=== PATIENT | male | born 1940 | race Caucasian/White ===

== ENCOUNTER → 2016-07-27 | Outpatient (REF) | payer MEDICARE, BC ==
[~2016-07-27] MED LIST: /AMLO25TA PO; /GLIM4TA PO; /WARF5TA PO; ALBU17IN INH; ALLO100T OR; AMIO20TA PO; AMLO10TA2 PO; AMOX875T2 PO; ASPI1TAB PO; ASPI325T PO; ASPI81TA85 PO; ASPI81TAEC PO; AUGM875T27 PO; BETA5CR EXT; BETA5OI TOP; BYDU1INJ SC; BYDUINJ SC; CARV25TA PO; CEFT500T3 PO; CHLORTHALIDONE PO; CORE25TA PO; DOXY10CA PO; ENAL20TA PO; FEBU40TA PO; FISH1000 PO; FLUT1SPR2; FURO40TA2 PO; GLIM4TAB PO; GLUC500T OR; HYDR25TAB PO; LISI-538 PO; LOPR1TAB6 PO; LORA10TA2 PO; MECL-68 PO; OMEGA FISH OIL PO; OMEP20CA3 PO; PRIL20CA PO; SITAGLIPTIN PO; XARE15TA PO; ZETI10TA PO; ZETI10TA2 PO
[2016-07-27 15:29] LABS: ALBUMIN 3.5 GM/DL (3.2-5.2); ALBUMIN/GLOBULIN RATIO 1.09 (1.00-1.93); BILIRUBIN,TOTAL 0.4 MG/DL (0.2-1.0); CALCIUM LEVEL 8.2 MG/DL (8.8-10.2); CREATININE FOR GFR 1.59 MG/DL (0.70-1.30); GLOMERULAR FILTRATION RATE 45.2 (>42); POTASSIUM SERUM 4.5 MEQ/L (3.5-5.1); TOTAL PROTEIN 6.7 GM/DL (6.4-8.2)
== END ==
LOC: M SFHCLACO 08:14
PROVIDERS: ATTEND Physician Assistant
DX: E11.9 Type 2 diabetes mellitus without complications (principal)

== ENCOUNTER 2016-09-13 19:16 | Inpatient (IN) | payer MEDICARE, BC ==
[~2016-09-13] VITALS: Ht 177.8 cm; Wt 126.2 kg
[2016-09-13] MEDS ORDERED: IPRATROPIUM 0.5MG/ALBUTEROL 2.5MG INH SOL UD 3ML (DUONEB)(J7620) NEB ONE (21:00)
[2016-09-13 21:57] LABS: ADD MORPHOLOGY? YES; BASO % 0.3 % (0.0-1.0); EOS # 0.1 K/mm3 (0.0-0.50); EOS % 1.4 % (0.0-3.0); LARGE UNSTAINED CELL # 0.2 K/mm3 (0.0-0.4); LARGE UNSTAINED CELL % 1.6 % (0.0-4.0); LYMPH % 8.5 % (24.0-44.0); MEAN CORPUSCULAR HEMOGLOBIN 15.6 pg (27.0-33.0); MEAN CORPUSCULAR HGB CONC 24.4 g/dl (32.0-36.5); MEAN CORPUSCULAR VOLUME 63.9 fl (80.0-96.0); MONO # 0.5 K/mm3 (0.0-0.8); MONO % 4.6 % (0.0-5.0); NEUTROPHILS # 8.3 K/mm3 (1.8-7.7); NEUTROPHILS % 83.6 % (36.0-66.0); PLATELET COUNT, AUTOMATED 219 k/mm3 (150-450); RED CELL DISTRIBUTION WIDTH 20.9 % (11.5-14.5)
[2016-09-13 22:06] LABS: VENOUS BASE EXCESS 5.9 (-2.0-2.0); VENOUS PARTIAL PRESSURE CO2 63.4 mmHg (38.0-50.0); VENOUS PARTIAL PRESSURE O2 56.4 mmHg (30.0-50.0); VENOUS STANDARD HCO3 29.7 MEQ/L; VENOUS TOTAL CO2 34.5 MEQ/L (24.0-28.0)
[2016-09-13 22:20] LABS: ANISOCYTOSIS 2+; CALCIUM LEVEL 8.2 MG/DL (8.8-10.2); CREATININE FOR GFR 1.53 MG/DL (0.70-1.30); GLOMERULAR FILTRATION RATE 47.2 (>42); HYPOCHROMASIA 3+; MICROCYTOSIS 3+; POTASSIUM SERUM 4.9 MEQ/L (3.5-5.1)
[2016-09-13 22:21] LABS: POLYCHROMASIA 1+
[2016-09-13 22:54] LABS: PERCENT SATURATION 4.4 % (19.7-37.4)
[2016-09-13] MEDS ORDERED: METO50TA2 PO (23:02)
[2016-09-13] MEDS ORDERED: AMIO20TA PO (23:02)
[2016-09-13] MEDS ORDERED: FURO40TA2 PO (23:03)
[2016-09-13] MEDS ORDERED: NS 1,000 ML IV SCH (23:48)
[2016-09-14] MEDS ORDERED: BETAMETHASONE DIP 0.05% OINT 15 GM TOP PRN
[2016-09-14] MEDS ORDERED: ONDANSETRON 4MG/2ML VIAL (J2405) IV PRN
[2016-09-14] MEDS ORDERED: BISACODYL 5 MG TAB PO PRN
[2016-09-14] MEDS ORDERED: ACETAMINOPHEN TAB 650MG DOSE (2X325MG) PO PRN
[2016-09-14] MEDS ORDERED: FLUTICASONE PROP 0.05% NASAL SPRAY 16 GM (FLONASE) PRN
[2016-09-14] MEDS ORDERED: ALBUTEROL 90 MCG/ACT 8GM HFA INHALER INH PRN
[2016-09-14] MEDS ORDERED: ALBUTEROL SULFATE 2.5 MG/0.5 ML INH NEB SOLN NEB PRN (00:15)
[2016-09-14] MEDS ORDERED: FUROSEMIDE 40 MG/4 ML VIAL (J1940) IV SCH (00:15)
[2016-09-14 01:00] VITALS: BP 176/80
[2016-09-14 04:50] VITALS: BP 168/77
[2016-09-14 05:24] LABS: MEAN CORPUSCULAR HEMOGLOBIN 18.6 pg (27.0-33.0); MEAN CORPUSCULAR HGB CONC 27.1 g/dl (32.0-36.5); MEAN CORPUSCULAR VOLUME 68.5 fl (80.0-96.0); RED CELL DISTRIBUTION WIDTH 21.9 % (11.5-14.5); WHITE BLOOD COUNT 9.3 K/mm3 (4.0-10.0)
[2016-09-14 05:42] LABS: ALBUMIN 3.3 GM/DL (3.2-5.2); ALBUMIN/GLOBULIN RATIO 0.92 (1.00-1.93); CALCIUM LEVEL 8.1 MG/DL (8.8-10.2); CREATININE FOR GFR 1.38 MG/DL (0.70-1.30); GLOMERULAR FILTRATION RATE 53.2 (>42); POTASSIUM SERUM 4.5 MEQ/L (3.5-5.1); TOTAL PROTEIN 6.9 GM/DL (6.4-8.2)
--- NOTE | 2016-09-14 05:59 | ECGEPIP ---
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
--- NOTE | 2016-09-14 07:11 | HPE ---
DATE OF ADMISSION: 09/14/2016 PRIMARY CARE PHYSICIAN: Judith Soler NP ENGRAVER TIRE MOLD: Trent Alfredo MD CODE STATUS: FULL CODE. CHIEF COMPLAINT: Fatigue and dyspnea. HISTORY OF PRESENT ILLNESS: Mr. Donnelly is a 76-year-old male with multiple past medical history who presented to emergency room (ER) due to experiencing shortness of breath that has been increased for the past 2 weeks. Patient expressed that he usually walked alone about the distance of two bedrooms. However, patient expressed that for the past 2 weeks he noticed that he become more out of breath and it has been increasing gradually. Patient denies sick contact. Patient denies fever, chills or night sweats. However, patient has noticed that his stool become darker than usual. Patient was started on Xarelto when patient was in the hospital due to atrial fibrillation. However, according to the patient, patient stopped taking Xarelto several weeks ago, which was stopped by his stamp mounter. At this time, patient is only on aspirin. Patient denies lightheadedness or dizziness. Patient also denies seizure type activities or losing consciousness. Patient also denies chest pain, palpitations or racing heartbeat. Patient also expressed that he is on oxygen 2 liter 24 hours and he feels that he needed more oxygen for the past week. Patient also has a chronic cough with yellowish sputum production. However, patient denies noticing that his cough has increased. ALLERGIES: NO KNOWN DRUG ALLERGY. PAST MEDICAL HISTORY: 1. Congestive heart failure exacerbation. 2. Atrial fibrillation. 3. Acute kidney injury. 4. Hypotension. 5. Hypoxia. 6. History of pleural effusion. 7. Gout. 8. Diabetes mellitus. 9. Gastroesophageal reflux disease (GERD). 10. Hypertension. 11. Morbid obesity with body mass index (BMI) of 41. PAST SURGICAL HISTORY: 1. Normal history of the gallbladder removed. 2. Appendectomy. 3. Knee surgery. HOME MEDICATION: Ventolin Hfa 2 puff inhaler every 4 hours when necessary shortness of breath Amiodarone 400 mg by mouth every PM Aspirin 81 mg by mouth every morning Betamethasone one dose topical twice a day when necessary dry skin Exenatide 2 mg before meals once a week (Tuesday) Zetia 10 mg by mouth every afternoon dinnertime Uloric 40 mg by mouth every afternoon Fish oil 1000 mg by mouth every afternoon Fluticasone propionate 0.05% to a spray and a daily when necessary allergy Furosemide 40 mg by mouth qam Glimepiride 4 mg by mouth twice a day Loratadine 10 mg by mouth every morning Metoprolol titrate 50 mg by mouth twice a day Omeprazole 20 mg by mouth every afternoon SOCIAL HISTORY: Patient lived with his . Patient has two sons who are healthy. Patient has not traveled outside the [place]. Patient has been exposed to asbestos. Patient has smoked about two packs since he was a teenager. He quit smoking in 1997. Patient was smoking for 30 years. Alcohol: Patient expressed that he drinks alcohol occasionally. Patient denies illicit drug use. Patient has no pets. FAMILY HISTORY: Patient has two sisters who due to breast cancer and abdominal cancer. Patient's mother at age 76. Patient's father at age 52. Patient does not know if his parents have any diseases. REVIEW OF SYSTEMS: GENERAL: Patient denies fever, chills, night sweats or any loss or weight gain. HEENT: Patient denies vision or hearing changes. Patient denies problem with chewing food, headache, lightheadedness or dizziness. However, patient expressed that he has been experiencing fatigue. NECK: Patient denies lumps, bumps or decreased range of motion of his neck. ABDOMEN: Patient denies abdominal pain, nausea, vomiting diarrhea, constipation , melena, hematochezia or hemoptysis. LUNG: Patient expressed that he has been experiencing shortness of breath. Patient is on 2 liter oxygen 24 hours and for the past week he feels that he needs more oxygen. Patient also has chronic cough. However, patient denies increasing of his cough. HEART: Patient denies palpitation, skipping heartbeat or chest pain. NEUROLOGIC: Patient denies history of transient ischemic attack (TIA), CVA, or seizure type activity. PHYSICAL EXAMINATION: VITAL SIGNS: Temperature 98.2, pulse 80, respiratory rate 17, blood pressure 146/66, pulse oximetry 84 on 2 liter nasal cannula. GENERAL APPEARANCE: Patient was lying in bed, no acute distress. Patient was awake, alert and oriented to time, place and person. HEENT: Normocephalic, atraumatic. Pupils are equal and reactive to light. Oral mucosa is moist. NECK: Soft, supple. No lymphadenopathy. No thyromegaly. HEART: Irregularly irregular. LUNG: Patient has scattered rhonchi at the base of lung. Good air movement. ABDOMEN: Soft, nontender. Positive bowel sounds in all quadrants. EXTREMITY: Patient has pitting edema in both lower extremities. Patient has decreased strength in both lower extremities, however, has normal sensation in both upper and lower extremities. NEUROLOGICAL: Cranial nerves II-XII intact. No focal deficiencies. RECTAL: Patient has positive guaiac test, however, no active bleeding was noticed. normal sphincter tone. LABORATORY DATA: White blood cells 10, red blood cells 3.74, hemoglobin 5.8, hematocrit 23.9, MCV 63.9, MCH 15.6, MCHC 24.4, RDW 20.9, platelet count 219, neutrophil percentage 83.6, lymphocyte percentage 8.5, monocyte percentage 4.6, eosinophil percentage 1.4, basophil percentage 0.3, leukocyte percentage 1.6. VBG bicarbonate 29.7, VBG pH 7.328, VBG pCO2 63.4, VBG pO2 56.4, VBG HCO3 32.5, VBG total CO2 34.5, VBG oxygen saturation 86, VBG base excess 5.9. Sodium 138, potassium 4.9, chloride 99, carbon dioxide 35, anion gap 4, BUN 31, creatinine 1.53, glomerular filtration rate 47.2, fasting glucose 218, calcium 8.2. Iron 20, TIBC 458, transferrin percentage 4.4, ferritin 4, total creatinine kinase 30, CK-MB 1.2, CK-MB relative index 4, troponin I 0.03, BNP 248. Vitamin B12 pending. Folic pending. Chest x-ray is pending at this time. ASSESSMENT AND PLAN: 1. Dyspnea. This is possibly due to anemia secondary to GI bleeding. other less likely possibilities included but not limited to GERD versus interstitial lung disease. Patient's hemoglobin, it is 5.8 and hematocrit is 23.9. Patient had colonoscopy done about 10 years ago, which was normal. However, patient has not had any procedure since then. Guiaic was positive. At this time, we have started patient on blood transfusion 4 units. However, due to patient's diastolic congestive heart failure and to prevent hypervolemia, we will give IV Lasix after the second transfusion and we will check hemoglobin and hematocrit every 6 hours. Patient is NPO and on Protonix 40 IV twice a day. 2. Atrial fibrillation. Patient was on Xarelto. However, stamp mounter has stopped this medication and started him on aspirin as an outpatient several weeks ago. However, due to gastrointestinal (GI) bleeding, I have held the aspirin. We will continue patient on Lopressor 50 mg by mouth twice a day and amiodarone 400 mg by mouth daily 3. Acute kidney injury. This is possibly secondary to dehydration versus medications. We have held nephrogenic medications and patient receiving blood transfusion. We will recheck the kidney function again. 4. Diabetes mellitus. At home, patient is on glimepiride; however, I have held it and I have started patient on sliding scale. Patient also nothing by mouth at this time. 5. Hypertension. At home, patient is on Lasix 40 mg by mouth every morning. However, I have stopped this medication due to acute kidney injury however he will receive a dose of IV Lasix after second unit of blood transfusion to prevent hypervolemia. 6. Diastolic congestive heart failure. Patient will receive a dose of Lasix IV. Patient is also on Lopressor. 7. Gout. Patient was on Uloric. However, I hold this medication. 8. Gastroesophageal reflux disease. Patient is on IV Protonix. 9. Deep venous thrombosis (DVT) prophylaxis. Patient is on thromboembolism deterrents (TEDs) and sequentials. My preceptor for this patient encounter was Louise Moreno MD. The preceptor was physically present in the building during the encounter and was fully available. As needed, all aspects of the patient interview, examination, medical decision making process, and medical care plan development were reviewed and approved by the preceptor. The preceptor is aware and concurs with the plan as stated in the body of this note and will attest to such by his/her co-signature. PATRIC
[2016-09-14 08:00] VITALS: BP 150/70
[2016-09-14] MEDS: IPRATROPIUM 0.5MG/ALBUTEROL 2.5MG INH SOL UD 3ML (DUONEB)(J7620) NEB SCH ×2 (08:20→15:39)
[2016-09-14] MEDS ORDERED: FUROSEMIDE 40 MG TAB PO SCH (09:00)
[2016-09-14] MEDS ORDERED: LORATADINE 10 MG TAB PO SCH (09:00)
[2016-09-14] MEDS: METOPROLOL TART 50 MG TAB PO SCH ×2 (09:00→21:24)
[2016-09-14] MEDS: PANTOPRAZOLE 40MG INJ (PROTONIX) (C9113) IV SCH ×2 (09:00→21:24)
[2016-09-14] MEDS: FUROSEMIDE 40 MG/4 ML VIAL (J1940) IV SCH (09:01)
[2016-09-14 09:21] LABS: FOLATE 19.7 NG/ML (>5.4)
--- NOTE | 2016-09-14 09:51 | REP ---
TWO VIEW CHEST: Two views of the chest are performed. Moderate right effusion is unchanged since the prior study of 04/05/2016. There is an adjacent atelectasis/infiltrate which is also stable. There appears to be mild stable fibroatelectatic change in the left base. Visualized cardiomediastinal silhouette is unchanged. There are degenerative changes of the spine. IMPRESSION: No change in moderate right effusion and bibasilar parenchymal opacities compared to prior study of 04/05/2016. Signed by Brendan Pace MD 09/14/2016 04:06 P
[2016-09-14 12:00] VITALS: BP 147/70
[2016-09-14 15:58] VITALS: BP 145/76
--- NOTE | 2016-09-14 16:23 | IPNPDOC ---
Subjective Date Seen The patient was seen on 09/14/16. Subjective Chief Complaint/HPI The patient is a 76-year-old male admitted with a reason for visit of Gastrointestinal Bleed. Constitutional: Denies: Chills, Fever, Night Sweats Pulmonary: Denies: Dyspnea, Cough Cardiovascular: Denies: Chest Pain, Palpitations, Orthopnea, Paroxysmal Noc. Dyspnea, Lt Headedness Objective Physical Examination General Exam: Positive: Alert, No Acute Distress Eye Exam: Positive: PERRLA, Conjunctiva & lids normal, EOMI, Negative: Sclera icteric Neck Exam: Positive: Supple Chest Exam: Positive: Clear to auscultation, Normal air movement Heart Exam: Positive: Rate Normal, Regular Rhythm, Normal S1, Normal S2, Negative: Murmurs, Rubs Extremity Exam: Positive: Normal pulses, Negative: Clubbing, Cyanosis, Edema Assessment /Plan Problems (1) Symptomatic anemia Status: Acute Problem Text: * pt was on xarelto that was discontinued august 06 * he noted dark stool in the past when he was still on xarelto but that has resolved since he stopped the medication * when he arrived to ED his hg was 5.8 he was transfused 4 units of prbc, now stable hg * will continue to monitor Hg Q6 hours * FOBT X2 were ordered * last colonoscopy was more than 10 years ago (2) COPD (chronic obstructive pulmonary disease) Status: Chronic Response to Treatment: Stable Problem Text: * pt on 2 L of oxygen all the time at home * good oxygen saturations (3) Chronic respiratory failure with hypoxia Status: Chronic Response to Treatment: Stable (4) Hypertension Status: Chronic (5) Diastolic CHF Status: Chronic Response to Treatment: Stable (6) Hypotension Status: Resolved Plan/VTE VTE Prophylaxis Ordered?: Yes VS, I&O, 24H, [facility] Vital Signs/I&O Vital Signs Date Time Temp Pulse Resp B/P (MAP) Pulse Ox O2 Delivery O2 Flow Rate FiO2 09/14/16 15:58 97.7 76 18 145/76 (99) 94 Nasal Cannula 2.0 I&O- Last 24 Hours up to 6 AM 09/14/16 06:00 Intake Total 970 ml Output Total 875 ml Balance 95 ml Laboratory Data 24H LABS Laboratory Tests 2 09/13/16 21:35: Blood Gas Bicarbonate Standard 29.7, Venous Blood pH 7.328L, Venous Blood Partial Pressure CO2 63.4H, Venous Blood Partial Pressure O2 56.4H, Venous Blood Total Carbon Dioxide 34.5H, Venous Blood HCO3 32.5H, Venous Blood Oxygen Saturation 86.0H, Venous Blood Base Excess 5.9H 09/13/16 21:36: White Blood Count 10.0, Red Blood Count 3.74L, Hemoglobin 5.8*L, Hematocrit 23.9L, Mean Corpuscular Volume 63.9L, Mean Corpuscular Hemoglobin 15.6L, Mean Corpuscular Hemoglobin Concent 24.4L, Red Cell Distribution Width 20.9H, Platelet Count 219, Neutrophils (%) (Auto) 83.6H, Lymphocytes (%) (Auto) 8.5L, Monocytes (%) (Auto) 4.6, Eosinophils (%) (Auto) 1.4, Basophils (%) (Auto) 0.3, Neutrophils # (Auto) 8.3H, Lymphocytes # (Auto) 1.0L, Monocytes # (Auto) 0.5, Eosinophils # (Auto) 0.1, Basophils # (Auto) 0.0, Large Unclassified Cells % 1.6 , Large Unclassified Cells # 0.2, Platelet Estimate NORMAL, Polychromasia 1+, Hypochromasia 3+, Anisocytosis 2+, Microcytosis 3+, Anion Gap 4L, Glomerular Filtration Rate 47.2, Blood Urea Nitrogen 31H, Creatinine 1.53H, Sodium Level 138, Potassium Level 4.9, Chloride Level 99, Carbon Dioxide Level 35H, Calcium Level 8.2L, Total Creatine Kinase 30L, Iron Level 20L, Total Iron Binding Capacity 458H, Transferrin % Saturation 4.4L, Ferritin 4L, Creatine Kinase MB 1.2, Creatine Kinase MB Relative Index 4.00, Troponin I 0.03, B-Type Natriuretic Peptide 348H, Vitamin B12 Level 375, Folate 19.7 09/14/16 04:40: Anion Gap 6L, Glomerular Filtration Rate 53.2, Blood Urea Nitrogen 26H, Creatinine 1.38H, Sodium Level 140, Potassium Level 4.5, Chloride Level 100, Carbon Dioxide Level 34H, Calcium Level 8.1L, Total Creatine Kinase 32L, Creatine Kinase MB 1.1, Creatine Kinase MB Relative Index 3.43, Troponin I 0.02# , Aspartate Amino Transf (AST/SGOT) 14L, Alanine Aminotransferase (ALT/SGPT) 12 , Alkaline Phosphatase 57, Total Bilirubin 1.0, Total Protein 6.9, Albumin 3.3, Magnesium Level 3.0H, Albumin/Globulin Ratio 0.92L 09/14/16 08:39: Total Creatine Kinase 40, Creatine Kinase MB 1.2, Creatine Kinase MB Relative Index 3.00, Troponin I 0.03# CBC/BMP Laboratory Tests 09/13/16 21:36 Red Blood Count 3.74 L, Mean Corpuscular Volume 63.9 L, Mean Corpuscular Hemoglobin 15.6 L, Mean Corpuscular Hemoglobin Concent 24.4 L, Red Cell Distribution Width 20.9 H, Neutrophils (%) (Auto) 83.6 H, Lymphocytes (%) (Auto ) 8.5 L, Monocytes (%) (Auto) 4.6, Eosinophils (%) (Auto) 1.4, Basophils (%) ( Auto) 0.3, Neutrophils # (Auto) 8.3 H, Lymphocytes # (Auto) 1.0 L, Monocytes # ( Auto) 0.5, Eosinophils # (Auto) 0.1, Basophils # (Auto) 0.0, Calcium Level 8.2 L , Total Creatine Kinase 30 L 09/14/16 04:40 Calcium Level 8.1 L, Total Creatine Kinase 32 L, Aspartate Amino Transf (AST/ SGOT) 14 L, Alanine Aminotransferase (ALT/SGPT) 12, Alkaline Phosphatase 57, Total Bilirubin 1.0, Total Protein 6.9, Albumin 3.3 09/14/16 04:41 Red Blood Count 3.88 L, Mean Corpuscular Volume 68.5 L, Mean Corpuscular Hemoglobin 18.6 L, Mean Corpuscular Hemoglobin Concent 27.1 L, Red Cell Distribution Width 21.9 H 09/14/16 12:20 ALBERTINA BAH DO September 14, 2016 16:23
[2016-09-14] MEDS ORDERED: AMIODARONE 200 MG TAB (PACERONE) PO SCH (18:00)
[2016-09-14 19:49] VITALS: BP 162/72
[2016-09-14] MEDS ORDERED: EZETIMIBE 10 MG TAB (ZETIA) PO SCH (21:00)
[2016-09-14] MEDS ORDERED: OMEGA-3 1050MG CAPSULE PO SCH (21:00)
[2016-09-14] MEDS ORDERED: OMEPRAZOLE 20 MG CAP PO SCH (21:00)
[2016-09-14] MEDS ORDERED: FEBUXOSTAT 40 MG TABLET (ULORIC) PO SCH (21:00)
[2016-09-14] MEDS: FERROUS SULFATE 325MG TAB PO SCH (21:24)
[2016-09-15] MEDS ORDERED: SLF 3 ML SYR IV PRN (00:15)
[2016-09-15 00:41] VITALS: BP 142/65
[2016-09-15 04:38] VITALS: BP 151/67
[2016-09-15] MEDS ORDERED: SLF 3 ML SYR IV SCH (06:00)
[2016-09-15 06:15] LABS: MEAN CORPUSCULAR HEMOGLOBIN 20.2 pg (27.0-33.0); MEAN CORPUSCULAR VOLUME 72.1 fl (80.0-96.0); RED CELL DISTRIBUTION WIDTH 24.2 % (11.5-14.5); WHITE BLOOD COUNT 7.8 K/mm3 (4.0-10.0)
[2016-09-15 06:24] LABS: ALBUMIN 3.2 GM/DL (3.2-5.2); ALBUMIN/GLOBULIN RATIO 0.94 (1.00-1.93); BILIRUBIN,TOTAL 0.4 MG/DL (0.2-1.0); CALCIUM LEVEL 8.4 MG/DL (8.8-10.2); CREATININE FOR GFR 1.34 MG/DL (0.70-1.30); MAGNESIUM LEVEL 2.4 MG/DL (1.8-2.4); POTASSIUM SERUM 4.3 MEQ/L (3.5-5.1); TOTAL PROTEIN 6.6 GM/DL (6.4-8.2)
[2016-09-15 08:00] VITALS: BP 145/65
[2016-09-15 08:28] VITALS: BP 151/67
[2016-09-15] MEDS: FERROUS SULFATE 325MG TAB PO SCH (08:28)
[2016-09-15] MEDS: FUROSEMIDE 40 MG/4 ML VIAL (J1940) IV SCH (08:28)
[2016-09-15] MEDS: PANTOPRAZOLE 40MG INJ (PROTONIX) (C9113) IV SCH (08:28)
[2016-09-15] MEDS: METOPROLOL TART 50 MG TAB PO SCH (08:28)
[2016-09-15] MEDS: IPRATROPIUM 0.5MG/ALBUTEROL 2.5MG INH SOL UD 3ML (DUONEB)(J7620) NEB SCH ×2 (08:34)
[2016-09-15] MEDS ORDERED: IRON65TA PO (11:14)
[2016-09-15] MEDS ORDERED: PROT1TAB2 PO (11:14)
--- NOTE | 2016-09-15 22:46 | DSES ---
DATE OF ADMISSION: 09/14/2016 DATE OF DISCHARGE: 09/15/2016 REASON FOR ADMISSION: Anemia. FINAL DIAGNOSES: 1. Symptomatic anemia may be secondary to gastrointestinal (GI) bleed. 2. Coagulopathy, likely secondary to Xarelto. 3. Chronic obstructive pulmonary disease (COPD). 4. Chronic respiratory failure with hypoxia. 5. Hypertension. 6. History of diastolic congestive heart failure, not in acute exacerbation. 7. Hypotension, which has resolved. HISTORY OF PRESENT ILLNESS: The patient is a 76-year-old male, presented to the emergency room complaining of shortness of breath that had started 2 weeks prior but has been getting progressively worse. The patient stated that he had noticed he has been more short of breath. Denied any sick contacts, fevers, chills, night sweats. However, patient stated that he has been noticing his stools being darker in color. He was recently on Xarelto due to atrial fibrillation but started to have dark stool so his willow machine operator took him off of Xarelto on 08/05/2016. The patient has been off of the medication for over a month now. When he presented to the emergency room he was found to be anemic with hemoglobin of 5.8. The patient was admitted under hospitalist service. HOSPITAL COURSE: The patient was transfused 4 units of packed red blood cells (RBCs). He was kept on oxygen to keep saturations above 88. Occult blood was done and was found to be positive, as well as iron studies, the patient was found to have iron deficiency anemia as well as positive occult blood. Dr. Cevallos at that point was consulted. He agreed to see the patient in consultation. Since his hemoglobin was stable after 4 units of blood, he was instructed to be discharged and to followup with him next week Tuesday or to schedule an outpatient colonoscopy. Once the patient was stable and symptoms had resolved, he was discharged home. He was given a script for complete blood count (CBC) to be done next Tuesday, results to go to his primary care provider, Judith Soler. VITAL SIGNS: On admission: Temperature 97.4, pulse 67, respiratory rate 18, blood pressure 145/65, pulse oximetry 96% on 2 liters. HEENT: Pupils equal, round, reactive to light and accommodation. NECK: Supple. No jugular venous distention (JVD). LABORATORY FINDINGS: Hemoglobin on discharge was 8.8, hematocrit was 31.4. DISCHARGE INSTRUCTIONS: Followup with primary care provider Judith Soler in [address] Cevallos in 1 week. NEW PRESCRIPTIONS: - iron 325 mg by mouth daily - pantoprazole 40 mg by mouth twice a day THE PATIENT IS TO CONTINUE ON: - albuterol two puffs inhaled every 4 hours as needed for shortness of breath - amiodarone 400 mg by mouth at bedtime - betamethasone one dose topically twice a day as needed for dry skin - Zetia 10 mg at bedtime - Uloric 40 mg at bedtime - fish oil 1000 mg by mouth at bedtime - fluticasone as needed for allergies - Lasix 40 mg at bedtime - glimepiride 4 mg by mouth twice a day - loratadine 10 mg in the morning - metoprolol 50 mg by mouth twice a day The patient's aspirin was discontinued as well as his omeprazole.
--- NOTE | 2016-09-16 20:46 | CR ---
DATE OF CONSULTATION: 09/15/2016 REASON FOR CONSULTATION: Iron deficient anemia. HISTORY OF PRESENT ILLNESS: The patient is a 76-year-old male who presented to the emergency room due to increasing shortness of breath over the past 2 weeks. He came into the hospital on September 14. In the emergency room (ER) he was found to be anemic with a hemoglobin at 5.8. He has had a history of melanotic stools over the past couple of months. He was on Xarelto at the time for atrial fibrillation. The Xarelto was stopped, and he has not had any more visible bleeding of any sort, but when he did have the shortness of breath, he came to the ER and was found to be anemic. He has been started on iron. He has been given 4 units of blood. His hemoglobins have been stable since. No signs of visible bleeding, but he does have fecal occult blood positive. Therefore, I was asked to evaluate. The patient claims to have heartburn, acid reflux, not daily, but at least a few times a week. He does not take anything regularly for it, but he does use Tums as needed. No bloody noses. No vomiting blood. No visible blood in his stools. He did have the melanotic stools up to about a month ago but has not had any visible bleeding since then. Last colonoscopy was over 10 years ago with negative findings. No family history of colon cancer or diseases. No changes to his bowel movements. No weight loss. No nighttime sweats or chills. PAST MEDICAL HISTORY: 1. Congestive heart failure (CHF). 2. Atrial fibrillation. 3. Acute renal injury. 4. Hypotension. 5. Hypoxia. 6. Pleural effusions. 7. Gout. 8. Diabetes. 9. Gastroesophageal reflux disease (GERD). 10. Hypertension. PAST SURGICAL HISTORY 1. Open cholecystectomy. 2. Appendectomy. 3. Knee surgery. HOME MEDICATIONS: Please see medication reconciliation. ALLERGIES: None. SOCIAL HISTORY: Denies any current drug, alcohol, tobacco abuse. FAMILY HISTORY: Noncontributory. REVIEW OF SYSTEMS: Pertinent positives and negatives as stated in the history of present illness (HPI). PHYSICAL EXAMINATION: GENERAL: Alert and oriented times three. No acute distress. VITAL SIGNS: Temperature 97.4, pulse 67, respirations 96, blood pressure 145/65, pulse oximetry 18% on 2 liters nasal cannula. HEENT: Pupils equally round and react to light accommodation. HEART: S1, S2, irregularly irregular rate and rhythm. LUNGS: Clear to auscultation bilaterally. ABDOMEN: Soft, nontender, nondistended. There is a reducible large umbilical hernia that is soft and nontender. EXTREMITIES: No clubbing, cyanosis, or edema. LABORATORY DATA: White count 7.8, hemoglobin 8.8. Potassium 4.3, creatinine 1.34. Iron is 20. ASSESSMENT AND PLAN: Patient is a 76-year-old male with iron deficient anemia, likely from a gastrointestinal (GI) source, most likely upper versus lower, history of melanotic stools in the past that have cleared up. This is likely secondary to gastritis, duodenitis versus gastric ulcer. Also he is at risk for polyps versus arteriovenous malformations (AVMs), more likely toward the proximal bowel rather than the distal due to the dark-colored stools. Recommendation at this time is to proceed with esophagogastroduodenoscopy (EGD) and colonoscopy. He is being discharged from the hospital, so I will have him follow with me in the office, and we will schedule these to be done as an outpatient. I also discussed his umbilical hernia with him, and that due to the size of it and risk for pending incarceration, he may want to consider having that fixed in the near future as well. He currently has a reducible umbilical hernia. Again, he will discuss that with me in the office as well. No further interventions necessary during this hospitalization. He is stable from my standpoint to be discharged home. Recommend start on a proton pump inhibitor (PPI) twice a day in the meantime and further recommendations to follow after he has his endoscopies completed. HALIMAD
== END 2016-09-15 13:42 | disposition home or self-care (01) | DRG 813 ==
LOC: M ED 22:08 → M ED INP 09-14 00:12 → M PCU 09-14 00:51
PROVIDERS: ADMIT Internal Medicine Nephrology; ATTEND Internal Medicine
PROC: 30233N1 Transfusion of Nonautologous Red Blood Cells into Peripheral Vein, Percutaneous Approach (ICD-10-PCS; principal; 2016-09-13)
DX: D68.4 Acquired coagulation factor deficiency (principal); K92.2 Gastrointestinal hemorrhage, unspecified; I50.32 Chronic diastolic (congestive) heart failure; N17.9 Acute kidney failure, unspecified; J96.11 Chronic respiratory failure with hypoxia; Z68.41 Body mass index [BMI] 40.0-44.9, adult; D68.32 Hemorrhagic disorder due to extrinsic circulating anticoagulants; E66.01 Morbid (severe) obesity due to excess calories; I10 Essential (primary) hypertension; E11.9 Type 2 diabetes mellitus without complications; J44.9 Chronic obstructive pulmonary disease, unspecified; Z79.899 Other long term (current) drug therapy; I48.91 Unspecified atrial fibrillation; M10.9 Gout, unspecified; Z79.82 Long term (current) use of aspirin; I95.9 Hypotension, unspecified

== ENCOUNTER → 2016-09-21 | Outpatient (CLI) | payer MEDICARE, BC ==
[~2016-09-21] MED LIST changes: +IRON65TA PO; +METO50TA2 PO; +PROT1TAB2 PO
[2016-09-21 11:23] LABS: MEAN CORPUSCULAR HEMOGLOBIN 21.6 pg (27.0-33.0); MEAN CORPUSCULAR HGB CONC 28.5 g/dl (32.0-36.5); MEAN CORPUSCULAR VOLUME 75.6 fl (80.0-96.0); RED CELL DISTRIBUTION WIDTH 26.1 % (11.5-14.5); WHITE BLOOD COUNT 6.4 K/mm3 (4.0-10.0)
== END ==
LOC: M LAB 10:26
PROVIDERS: ATTEND Internal Medicine
DX: D64.9 Anemia, unspecified (principal)

== ENCOUNTER → 2016-10-01 | Outpatient (REF) | payer MEDICARE, BC ==
[2016-10-01 15:42] LABS: MEAN CORPUSCULAR HEMOGLOBIN 23.5 pg (27.0-33.0); MEAN CORPUSCULAR HGB CONC 29.1 g/dl (32.0-36.5); MEAN CORPUSCULAR VOLUME 80.6 fl (80.0-96.0); RED CELL DISTRIBUTION WIDTH 26.5 % (11.5-14.5); WHITE BLOOD COUNT 7.1 K/mm3 (4.0-10.0)
== END ==
LOC: M SFHCLACO 09:47
PROVIDERS: ATTEND Physician Assistant
DX: K92.2 Gastrointestinal hemorrhage, unspecified (principal); D62 Acute posthemorrhagic anemia
CPT/HCPCS: 36415; 85027; G0463

== ENCOUNTER → 2016-10-06 | Outpatient (CLI) | payer MEDICARE, BC ==
[~2016-10-06] VITALS: Ht 177.8 cm; Wt 122.5 kg
[~2016-10-06] MED LIST changes: +LIDOCAINE 2% INJ 100 MG/5 ML SDV (FOR ANES.) As Ordered ONE; +NS 1,000 ML IV ONE; +PROPOFOL 500 MG/50 ML VIAL As Ordered ONE
--- NOTE | 2016-10-06 13:31 | ROOR ---
Patient Name: Kenny Donnelly Procedure Date: 10/06/2016 12:48 PM Date of : 1940 Age: 76 Room: [facility] Gender: Male Note Status: Finalized Procedure: Upper GI endoscopy Indications: Iron deficiency anemia Providers: DO Damaris Spencer MD: YANI Valerio PA-C Requesting Provider: Medicines: Propofol per Anesthesia Complications: No immediate complications. Procedure: Pre-Anesthesia Assessment: - Prior to the procedure, a History and Physical was performed, and patient medications and allergies were reviewed. The patient is competent. The risks and benefits of the procedure and the sedation options and risks were discussed with the patient. All questions were answered and informed consent was obtained. Patient identification and proposed procedure were verified by the physician, the nurse, the anesthesiologist and the home appliance technician in the endoscopy suite. Mental Status Examination: alert and oriented. Airway Examination: normal oropharyngeal airway and neck mobility. Respiratory Examination: clear to auscultation. CV Examination: normal. Prophylactic Antibiotics: The patient does not require prophylactic antibiotics. Prior Anticoagulants: The patient has taken no previous anticoagulant or antiplatelet agents. ASA Grade Assessment: III - A patient with severe systemic disease. After reviewing the risks and benefits, the patient was deemed in satisfactory condition to undergo the procedure. The anesthesia plan was to use monitored anesthesia care (MAC). Immediately prior to administration of medications, the patient was re-assessed for adequacy to receive sedatives. The heart rate, respiratory rate, oxygen saturations, blood pressure, adequacy of pulmonary ventilation, and response to care were monitored throughout the procedure. The physical status of the patient was re-assessed after the procedure. The Endoscope was introduced through the mouth, and advanced to the second part of duodenum. The upper GI endoscopy was accomplished without difficulty. The patient tolerated the procedure well. Findings: Scattered mild inflammation characterized by congestion (edema) was found in the prepyloric region of the stomach. Multiple less than 5 mm sessile polyps with no bleeding and no stigmata of recent bleeding were found in the prepyloric region of the stomach. Biopsies were taken with a cold forceps for histology. Impression: - Gastritis. - Multiple gastric polyps. Biopsied. Recommendation: - Patient has a contact number available for emergencies. The signs and symptoms of potential delayed complications were discussed with the patient. Return to normal activities tomorrow. Written discharge instructions were provided to the patient. - Telephone my office for pathology results in 1 week. Brendan Cevallos DO 10/06/2016 1:31:24 PM This report has been signed electronically. Number of Addenda: 0 Note Initiated On: 10/06/2016 12:48 PM Estimated Blood Loss: Estimated blood loss was minimal.
--- NOTE | 2016-10-06 13:34 | ROOR ---
Patient Name: Kenny Donnelly Procedure Date: 10/06/2016 12:49 PM Date of : 1940 Age: 76 Room: [facility] Gender: Male Note Status: Finalized Procedure: Colonoscopy Indications: Iron deficiency anemia Providers: DO Damaris Spencer MD: YANI Valerio PA-C Requesting Provider: Medicines: Propofol per Anesthesia Complications: No immediate complications. Procedure: Pre-Anesthesia Assessment: - Prior to the procedure, a History and Physical was performed, and patient medications and allergies were reviewed. The patient is competent. The risks and benefits of the procedure and the sedation options and risks were discussed with the patient. All questions were answered and informed consent was obtained. Patient identification and proposed procedure were verified by the physician, the nurse, the anesthesiologist and the dental service technician in the endoscopy suite. Mental Status Examination: alert and oriented. Airway Examination: normal oropharyngeal airway and neck mobility. Respiratory Examination: clear to auscultation. CV Examination: normal. Prophylactic Antibiotics: The patient does not require prophylactic antibiotics. Prior Anticoagulants: The patient has taken no previous anticoagulant or antiplatelet agents. ASA Grade Assessment: III - A patient with severe systemic disease. After reviewing the risks and benefits, the patient was deemed in satisfactory condition to undergo the procedure. The anesthesia plan was to use monitored anesthesia care (MAC). Immediately prior to administration of medications, the patient was re-assessed for adequacy to receive sedatives. The heart rate, respiratory rate, oxygen saturations, blood pressure, adequacy of pulmonary ventilation, and response to care were monitored throughout the procedure. The physical status of the patient was re-assessed after the procedure. The Colonoscope was introduced through the anus and advanced to the cecum, identified by appendiceal orifice and ileocecal valve. The colonoscopy was performed with ease. The patient tolerated the procedure well. Findings: Multiple small and large-mouthed diverticula were found in the sigmoid colon. Five hyperplastic polyps were found in the sigmoid colon, descending colon, transverse colon, proximal transverse colon, distal transverse colon and ascending colon. The polyps were 3 to 9 mm in size. These polyps were removed with a hot snare. Resection and retrieval were complete. Estimated blood loss was minimal. The exam was otherwise without abnormality. Impression: - Diverticulosis in the sigmoid colon. - Five 3 to 9 mm polyps in the sigmoid colon, in the descending colon, in the transverse colon, in the proximal transverse colon, in the distal transverse colon and in the ascending colon, removed with a hot snare. Resected and retrieved. - The examination was otherwise normal. Recommendation: - Patient has a contact number available for emergencies. The signs and symptoms of potential delayed complications were discussed with the patient. Return to normal activities tomorrow. Written discharge instructions were provided to the patient. - Repeat colonoscopy in 5-10 years for surveillance based on pathology results. - Return to my office PRN. - Telephone my office for pathology results in 1 week. Brendan Cevallos DO 10/06/2016 1:33:55 PM This report has been signed electronically. Number of Addenda: 0 Note Initiated On: 10/06/2016 12:49 PM Estimated Blood Loss: Estimated blood loss was minimal.
[2016-10-06 13:55] VITALS: BP 190/88
== END | disposition home or self-care (01) ==
LOC: M OPP 11:46
PROVIDERS: ATTEND Surgery
DX: D50.9 Iron deficiency anemia, unspecified (principal); D12.5 Benign neoplasm of sigmoid colon; D12.4 Benign neoplasm of descending colon; D12.3 Benign neoplasm of transverse colon; D12.2 Benign neoplasm of ascending colon; K57.30 Diverticulosis of large intestine without perforation or abscess without bleeding; K31.7 Polyp of stomach and duodenum; K29.70 Gastritis, unspecified, without bleeding; I48.91 Unspecified atrial fibrillation; I11.0 Hypertensive heart disease with heart failure; E78.5 Hyperlipidemia, unspecified; E11.9 Type 2 diabetes mellitus without complications; K21.9 Gastro-esophageal reflux disease without esophagitis; Z87.19 Personal history of other diseases of the digestive system; R12 Heartburn; J44.9 Chronic obstructive pulmonary disease, unspecified; Z99.81 Dependence on supplemental oxygen; Z87.891 Personal history of nicotine dependence; Z79.84 Long term (current) use of oral hypoglycemic drugs; Z79.899 Other long term (current) drug therapy

== ENCOUNTER → 2016-10-12 | Outpatient (REF) | payer MEDICARE, BC ==
[~2016-10-12] MED LIST changes: -LIDOCAINE 2% INJ 100 MG/5 ML SDV (FOR ANES.) As Ordered ONE; -NS 1,000 ML IV ONE; -PROPOFOL 500 MG/50 ML VIAL As Ordered ONE
[2016-10-12 15:14] LABS: MEAN CORPUSCULAR HEMOGLOBIN 25.2 pg (27.0-33.0); MEAN CORPUSCULAR HGB CONC 30.4 g/dl (32.0-36.5); MEAN CORPUSCULAR VOLUME 82.8 fl (80.0-96.0); RED CELL DISTRIBUTION WIDTH 23.8 % (11.5-14.5); WHITE BLOOD COUNT 6.6 K/mm3 (4.0-10.0)
== END ==
LOC: M SFHCLACO 11:18
PROVIDERS: ATTEND Physician Assistant
DX: D62 Acute posthemorrhagic anemia (principal); K92.2 Gastrointestinal hemorrhage, unspecified
CPT/HCPCS: 36415; 85027; G0463

== ENCOUNTER → 2016-10-26 | Outpatient (REF) | payer MEDICARE, BC ==
[~2016-10-26] MED LIST changes: +AMIO200T PO; -AMIO20TA PO; +DOXY100T2 PO; -DOXY10CA PO; -METO50TA2 PO; +METO50TA7 PO; -ZETI10TA2 PO; +ZETI10TA30 PO
[2016-10-26 15:41] LABS: ALBUMIN 3.4 GM/DL (3.2-5.2); ALBUMIN/GLOBULIN RATIO 0.97 (1.00-1.93); ALKALINE PHOSPHATASE 77 U/L (45-117); ALT/SGPT 15 U/L (12-78); ANION GAP 7 MEQ/L (8-16); AST/SGOT 20 U/L (15-37); BILIRUBIN,TOTAL 0.3 MG/DL (0.2-1.0); BLOOD UREA NITROGEN 18 MG/DL (7-18); CALCIUM LEVEL 8.4 MG/DL (8.8-10.2); CARBON DIOXIDE LEVEL 37 MEQ/L (21-32); CHLORIDE LEVEL 100 MEQ/L (98-107); CHOLESTEROL LEVEL 177 MG/DL (<200); GLOMERULAR FILTRATION RATE > 60.0 (>42); GLUCOSE, FASTING 93 MG/DL (83-110); POTASSIUM SERUM 3.8 MEQ/L (3.5-5.1); SODIUM LEVEL 144 MEQ/L (136-145); TOTAL PROTEIN 6.9 GM/DL (6.4-8.2); TRIGLYCERIDES LEVEL 215 MG/DL (<150)
[2016-10-26 16:08] LABS: MEAN CORPUSCULAR HEMOGLOBIN 27.1 pg (27.0-33.0); MEAN CORPUSCULAR VOLUME 87.3 fl (80.0-96.0); RED CELL DISTRIBUTION WIDTH 20.5 % (11.5-14.5); WHITE BLOOD COUNT 5.7 K/mm3 (4.0-10.0)
== END ==
LOC: M SFHCLACO 08:18
PROVIDERS: ATTEND Physician Assistant
DX: K92.2 Gastrointestinal hemorrhage, unspecified (principal); D62 Acute posthemorrhagic anemia; E11.9 Type 2 diabetes mellitus without complications

== ENCOUNTER → 2016-11-18 | Outpatient (REF) | payer MEDICARE, BC ==
[2016-11-18 15:07] LABS: MEAN CORPUSCULAR HEMOGLOBIN 28.3 pg (27.0-33.0); MEAN CORPUSCULAR HGB CONC 31.7 g/dl (32.0-36.5); MEAN CORPUSCULAR VOLUME 89.3 fl (80.0-96.0); RED CELL DISTRIBUTION WIDTH 16.7 % (11.5-14.5); WHITE BLOOD COUNT 6.1 K/mm3 (4.0-10.0)
[2016-11-18 15:29] LABS: CALCIUM LEVEL 9.1 MG/DL (8.8-10.2); CREATININE FOR GFR 1.38 MG/DL (0.70-1.30); GLOMERULAR FILTRATION RATE 53.2 (>42)
== END ==
LOC: M SFHCLACO 08:11
PROVIDERS: ATTEND Physician Assistant
DX: I10 Essential (primary) hypertension (principal); J90 Pleural effusion, not elsewhere classified

== ENCOUNTER → 2016-12-30 | Outpatient (REF) | payer MEDICARE, BC ==
[2016-12-30 14:52] LABS: MEAN CORPUSCULAR HEMOGLOBIN 28.2 pg (27.0-33.0); MEAN CORPUSCULAR HGB CONC 32.5 g/dl (32.0-36.5); MEAN CORPUSCULAR VOLUME 86.6 fl (80.0-96.0); RED CELL DISTRIBUTION WIDTH 14.2 % (11.5-14.5); WHITE BLOOD COUNT 6.1 K/mm3 (4.0-10.0)
== END ==
LOC: M SFHCLACO 09:15
PROVIDERS: ATTEND Physician Assistant
DX: D62 Acute posthemorrhagic anemia (principal)

== ENCOUNTER → 2017-03-01 | Outpatient (REF) | payer MEDICARE, BC ==
[2017-03-01 14:53] LABS: MEAN CORPUSCULAR HEMOGLOBIN 27.6 pg (27.0-33.0); MEAN CORPUSCULAR HGB CONC 31.4 g/dl (32.0-36.5); MEAN CORPUSCULAR VOLUME 87.8 fl (80.0-96.0); PLATELET COUNT, AUTOMATED 185 10^3/uL (150-450); RED CELL DISTRIBUTION WIDTH 15.7 % (11.5-14.5); WHITE BLOOD COUNT 7.4 10^3/uL (4.0-10.0)
[2017-03-01 15:08] LABS: ALBUMIN 3.8 GM/DL (3.2-5.2); ALBUMIN/GLOBULIN RATIO 1.09 (1.00-1.93); ALKALINE PHOSPHATASE 77 U/L (45-117); ALT/SGPT 20 U/L (12-78); ANION GAP 9 MEQ/L (8-16); AST/SGOT 17 U/L (15-37); BILIRUBIN,TOTAL 0.3 MG/DL (0.2-1.0); BLOOD UREA NITROGEN 54 MG/DL (7-18); CALCIUM LEVEL 8.8 MG/DL (8.8-10.2); CARBON DIOXIDE LEVEL 30 MEQ/L (21-32); CHLORIDE LEVEL 100 MEQ/L (98-107); CHOLESTEROL LEVEL 208 MG/DL (<200); CREATININE FOR GFR 2.21 MG/DL (0.70-1.30); GLOMERULAR FILTRATION RATE 30.8 (>42); GLUCOSE, FASTING 174 MG/DL (83-110); POTASSIUM SERUM 4.7 MEQ/L (3.5-5.1); SODIUM LEVEL 139 MEQ/L (136-145); TOTAL PROTEIN 7.3 GM/DL (6.4-8.2); TRIGLYCERIDES LEVEL 437 MG/DL (<150); URIC ACID 9.3 MG/DL (3.5-7.2)
== END ==
LOC: M SFHCLACO 08:46
PROVIDERS: ATTEND Physician Assistant
DX: D62 Acute posthemorrhagic anemia (principal); E11.9 Type 2 diabetes mellitus without complications; E78.2 Mixed hyperlipidemia; Z12.5 Encounter for screening for malignant neoplasm of prostate; M10.9 Gout, unspecified; Z23 Encounter for immunization
CPT/HCPCS: 36415; 80053; 80061; 83036; 84550; 85027; 90662; G0008; G0103

== ENCOUNTER → 2017-06-07 | Outpatient (REF) | payer MEDICARE, BC ==
[2017-06-07 15:46] LABS: ALBUMIN 3.9 GM/DL (3.2-5.2); ALBUMIN/GLOBULIN RATIO 1.05 (1.00-1.93); ALKALINE PHOSPHATASE 66 U/L (45-117); ALT/SGPT 18 U/L (12-78); ANION GAP 9 MEQ/L (8-16); AST/SGOT 22 U/L (7-37); BILIRUBIN,TOTAL 0.3 MG/DL (0.2-1.0); BLOOD UREA NITROGEN 52 MG/DL (7-18); CALCIUM LEVEL 8.7 MG/DL (8.8-10.2); CARBON DIOXIDE LEVEL 28 MEQ/L (21-32); CHLORIDE LEVEL 105 MEQ/L (98-107); CHOLESTEROL LEVEL 216 MG/DL (<200); CHOLESTEROL RISK RATIO 5.538 (<5); GLOMERULAR FILTRATION RATE 36.7 (>42); GLUCOSE, FASTING 146 MG/DL (70-100); HDL CHOLESTEROL 39 MG/DL (>40); NON-HDL-C 177 MG/DL; POTASSIUM SERUM 4.2 MEQ/L (3.5-5.1); SODIUM LEVEL 142 MEQ/L (136-145); TOTAL PROTEIN 7.6 GM/DL (6.4-8.2); TRIGLYCERIDES LEVEL 404 MG/DL (<150)
[2017-06-07 15:58] LABS: ESTIMATED AVERAGE GLUCOSE 174 MG/DL (60-110); HEMOGLOBIN A1c 7.7 %
== END ==
LOC: M SFHCLACO 08:28
DX: E11.9 Type 2 diabetes mellitus without complications (principal); E78.2 Mixed hyperlipidemia
CPT/HCPCS: 80053

== ENCOUNTER → 2017-08-25 | Outpatient (REF) | payer MEDICARE, BC ==
[2017-08-25 15:20] LABS: ALBUMIN 3.5 GM/DL (3.2-5.2); ALBUMIN/GLOBULIN RATIO 1.06 (1.00-1.93); ALKALINE PHOSPHATASE 69 U/L (45-117); ALT/SGPT 20 U/L (12-78); ANION GAP 7 MEQ/L (8-16); AST/SGOT 19 U/L (7-37); BILIRUBIN,TOTAL 0.3 MG/DL (0.2-1.0); BLOOD UREA NITROGEN 28 MG/DL (7-18); CALCIUM LEVEL 8.1 MG/DL (8.8-10.2); CARBON DIOXIDE LEVEL 29 MEQ/L (21-32); CHLORIDE LEVEL 109 MEQ/L (98-107); CHOLESTEROL LEVEL 189 MG/DL (<200); CHOLESTEROL RISK RATIO 5.727 (<5); CREATININE FOR GFR 1.53 MG/DL (0.70-1.30); GLOMERULAR FILTRATION RATE 47.1 (>42); GLUCOSE, FASTING 113 MG/DL (70-100); HDL CHOLESTEROL 33 MG/DL (>40); LDL CHOLESTEROL 87.6 MG/DL (<100); NON-HDL-C 156 MG/DL; POTASSIUM SERUM 3.8 MEQ/L (3.5-5.1); SODIUM LEVEL 145 MEQ/L (136-145); TOTAL PROTEIN 6.8 GM/DL (6.4-8.2); TRIGLYCERIDES LEVEL 342 MG/DL (<150)
[2017-08-25 15:22] LABS: ESTIMATED AVERAGE GLUCOSE 154 MG/DL (60-110)
== END ==
LOC: M SFHCLACO 14:41
DX: E11.9 Type 2 diabetes mellitus without complications (principal)
CPT/HCPCS: 80053

== ENCOUNTER → 2017-12-20 | Outpatient (REF) | payer MEDICARE, BC ==
[2017-12-20 15:18] LABS: ALBUMIN 3.8 GM/DL (3.2-5.2); ALBUMIN/GLOBULIN RATIO 1.06 (1.00-1.93); ALKALINE PHOSPHATASE 55 U/L (45-117); ALT/SGPT 22 U/L (12-78); ANION GAP 10 MEQ/L (8-16); AST/SGOT 22 U/L (7-37); BILIRUBIN,TOTAL 0.3 MG/DL (0.2-1.0); BLOOD UREA NITROGEN 53 MG/DL (7-18); CALCIUM LEVEL 8.7 MG/DL (8.8-10.2); CARBON DIOXIDE LEVEL 29 MEQ/L (21-32); CHLORIDE LEVEL 103 MEQ/L (98-107); CHOLESTEROL LEVEL 207 MG/DL (<200); CHOLESTEROL RISK RATIO 5.447 (<5); CREATININE FOR GFR 2.16 MG/DL (0.70-1.30); GLOMERULAR FILTRATION RATE 31.6 (>42); GLUCOSE, FASTING 122 MG/DL (70-100); HDL CHOLESTEROL 38 MG/DL (>40); NON-HDL-C 169 MG/DL; POTASSIUM SERUM 4.2 MEQ/L (3.5-5.1); SODIUM LEVEL 142 MEQ/L (136-145); TOTAL PROTEIN 7.4 GM/DL (6.4-8.2); TRIGLYCERIDES LEVEL 464 MG/DL (<150)
[2017-12-20 15:20] LABS: ESTIMATED AVERAGE GLUCOSE 183 MG/DL (60-110)
== END ==
LOC: M SFHCLACO 08:30
DX: I10 Essential (primary) hypertension (principal); E78.2 Mixed hyperlipidemia; E11.9 Type 2 diabetes mellitus without complications
CPT/HCPCS: 80053

== ENCOUNTER → 2019-10-31 | Outpatient (REF) | payer MEDICARE, BC ==
[~2019-10-31] MED LIST changes: -/AMLO25TA PO; -/GLIM4TA PO; -/WARF5TA PO; +AMAR1TAB6 PO; -AMIO200T PO; +AMIO200T3 PO; -AMLO10TA2 PO; +AMLO1TAB25 PO; -ASPI1TAB PO; +ASPI81TA26 PO; +CALC600T60 PO; +COUM1TAB17 PO; +FEBU40TA4 PO; +FERR325T3 PO; +FLON1SPR NARES; -GLIM4TAB PO; +GLIM4TAB5 PO; +LORA-243 PO; -LORA10TA2 PO; +LOSA100T50 PO; +NORV2TAB PO; +OMEG10002 PO; +OMEP1CAP73 PO; -OMEP20CA3 PO; +PANT-23 PO; +SITA50TAB PO; +TORS20TA2 PO; +VENTAER INH; +ZETI10TA16 PO; -ZETI10TA30 PO
[2019-10-31 19:00] LABS: ALBUMIN 3.2 GM/DL (3.2-5.2); BILIRUBIN,TOTAL 0.4 MG/DL (0.2-1.0); CALCIUM LEVEL 8.6 MG/DL (8.8-10.2); CHOLESTEROL RISK RATIO 6.081 (<5); CREATININE FOR GFR 2.06 MG/DL (0.70-1.30); GLOMERULAR FILTRATION RATE 33.2 (>35); POTASSIUM SERUM 3.9 MEQ/L (3.5-5.1); TOTAL PROTEIN 6.9 GM/DL (6.4-8.2)
[2019-10-31 19:40] LABS: HEMOGLOBIN A1c 6.1 %
== END ==
LOC: M SFHCADAM 13:44
PROVIDERS: ATTEND Physician Assistant
DX: I10 Essential (primary) hypertension (principal); E78.2 Mixed hyperlipidemia; E11.9 Type 2 diabetes mellitus without complications; Z12.5 Encounter for screening for malignant neoplasm of prostate
CPT/HCPCS: 80053; 80061; 83036; G0103

== ENCOUNTER → 2020-01-21 | Outpatient (CLI) | payer MEDICARE, BC ==
--- NOTE | 2020-02-07 11:47 | REPPI ---
CHEST X-RAY: 2-VIEWS HISTORY: Cough. Chest congestion. COMPARISON: 09/13/2016. FINDINGS: There is a 6.5 cm mass projecting in the posterior aspect of the left upper lobe suggesting neoplasm. This is new from the prior study. There is linear fibrosis in the left base and to a lesser extent in the right base. There is slight blunting of the right lateral and right posterior pleural angles. The pleural angle blunting has improved from the 2017 study. Moderate cardiomegaly is again observed. Pulmonary vasculature is not increased. Lung zuniga are otherwise clear. IMPRESSION: A 6.5 cm mass in the left upper lobe suggesting primary lung malignancy. Consider chest CT scanning, preferably with IV contrast. There is slight blunting of the right lateral pleural angle and mild bibasilar linear fibrosis. MTDD
== END ==
LOC: M PLAIMG 13:47
PROVIDERS: ATTEND Physician Assistant
DX: R91.8 Other nonspecific abnormal finding of lung field (principal); I51.7 Cardiomegaly; R05 Cough; R09.89 Other specified symptoms and signs involving the circulatory and respiratory systems

== ENCOUNTER → 2020-01-30 | Outpatient (CLI) | payer MEDICARE, BC ==
--- NOTE | 2020-02-08 08:32 | REP ---
CT CHEST WITHOUT CONTRAST HISTORY: Left upper lobe mass. COMPARISON: Chest CT study 02/17/2016. Chest x-ray 01/21/2020. CT FINDINGS: Preliminary digital rug setter [place] radiograph demonstrates the left upper lung mass. Cardiomegaly. Axial CT images confirm the presence of a pulmonary parenchymal mass in the left upper lobe. By CT, this has somewhat lobulated contours. It measures 5.3 cm in greatest craniocaudal span x 4.4 cm sclznuxs-[id number] x 3.7 cm [id number]. It extends to the lateral pleural surface. There does not appear to be chest wall invasion. There is a small left pleural effusion. 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 Also noted is a noncalcified 0.6 cm nodule in the left upper lobe inferior and lateral to this. No other pulmonary nodule is seen. There are atelectatic changes in the lung bases bilaterally. No focal infiltrate is seen. There is a small amount of pericardial fluid and four chamber cardiomegaly is observed with vascular calcification. No mediastinal or obvious hilar adenopathy is seen on this noncontrast study. Bone window settings show no bony destructive lesion. There is a left adrenal soft tissue lesion measuring 3.9 x 2.4 x 1.8 cm. This is unchanged from the 11/04/[address] study and is felt to be consistent with a benign adrenal adenoma. No new adrenal mass lesion is seen. However, there is a low density solid lesion in the left lobe of the liver anteriorly, which is new from the prior study and may be a liver metastasis. It measures 4.8 cm in greatest diameter. IMPRESSION: There is a soft tissue mass in the left upper lobe posteriorly measuring 5.3 cm in greatest diameter compatible with primary lung malignancy. A small subcentimeter nodule is seen elsewhere in the left upper lobe. There is a suspicious 4.9 cm mass in the left lobe of the liver anteriorly, which may be metastatic neoplasm. A stable left adrenal adenoma is observed. [facility]
== END ==
LOC: M RAD 13:12
PROVIDERS: ATTEND Family Medicine
DX: R91.8 Other nonspecific abnormal finding of lung field (principal); K76.89 Other specified diseases of liver

== ENCOUNTER 2020-02-04 15:28 | Emergency (ER) | payer MEDICARE, BC ==
[~2020-02-04] VITALS: Ht 177.8 cm; Wt 138.6 kg
[~2020-02-04 15:28] MED LIST changes: -CALC600T60 PO; -FERR325T3 PO; -FLON1SPR NARES; -LOSA100T50 PO; -OMEG10002 PO; -PANT-23 PO; -SITA50TAB PO; -TORS20TA2 PO; -VENTAER INH
--- NOTE | 2020-02-04 17:09 | REPVR ---
PROCEDURE INFORMATION: Exam: XR Chest, 2 Views Exam date and time: 02/04/2020 4:57 PM Age: 79 years old Clinical indication: Cough and dyspnea; Additional info: Dyspnea/cough TECHNIQUE: Imaging protocol: XR of the chest Views: 2 views. COMPARISON: CT Chest without contrast 01/30/2020 2:01 PM FINDINGS: Lungs: Atelectasis both lung bases. Mass in the left upper lobe measures 6.1 x 4.8 cm. Pleural space: Blunting of both costophrenic angles consistent with pleural effusions. Heart/Mediastinum: Unremarkable. No cardiomegaly. Bones/joints: The spine demonstrates moderate degenerative changes. IMPRESSION: 1. Blunting of both costophrenic angles consistent with pleural effusions. 2. Mass in the left upper lobe measures 6.1 x 4.8 cm. Electronically signed by: Thompson Howard On 02/04/2020 17:09:27 PM
[2020-02-04 17:10] LABS: HEMATOCRIT 32.4 % (42.0-52.0); HEMOGLOBIN 9.6 g/dl (13.5-17.5); MEAN CORPUSCULAR HEMOGLOBIN 26.3 pg (27.0-33.0); MEAN CORPUSCULAR HGB CONC 29.6 g/dl (32.0-36.5); MEAN CORPUSCULAR VOLUME 88.8 fl (80.0-96.0); PLATELET COUNT, AUTOMATED 159 10^3/uL (150-450); RED BLOOD COUNT 3.65 10^6/uL (4.30-6.10); WHITE BLOOD COUNT 8.1 10^3/uL (4.0-10.0)
[2020-02-04 17:22] LABS: ALBUMIN 2.9 GM/DL (3.2-5.2); ALT/SGPT 20 U/L (12-78); BILIRUBIN,DIRECT < 0.1 MG/DL (0.0-0.2); BILIRUBIN,TOTAL 0.2 MG/DL (0.2-1.0); CK-MB VALUE MASS 1.7 NG/ML (<3.6); CPK CREATINE PHOSPHOKINASE 39 U/L (39-308); MB/CK RELATIVE INDEX 4.36 (< OR =4); TOTAL PROTEIN 6.5 GM/DL (6.4-8.2); TROPONIN I < 0.02 NG/ML (< 0.10)
[2020-02-04 17:30] VITALS: BP 156/64
[2020-02-04 17:32] LABS: BASOPHILS 1 % (0-1); EOSINOPHILS 2 % (0-3); LYMPHOCYTES 11 % (16-44); MONOCYTES 5 % (0-5); NEUTROPHILS 81 % (28-66)
[2020-02-04 17:34] LABS: HYPOCHROMASIA 1+; PLATELET ESTIMATE NORMAL (NORMAL)
--- NOTE | 2020-02-05 09:18 | ECGEPIP ---
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
--- NOTE | 2020-02-06 18:33 | ED PDOC ---
Post-Departure Follow-Up edward emanual faxed formalreport of cxr for fu Allison Dalton MD Feb 06, 2020 18:33
== END 2020-02-04 18:23 | disposition left against medical advice (07) ==
LOC: M ED 15:28 → CANBEDREQ 17:55 → M ED 18:23
DX: C34.92 Malignant neoplasm of unspecified part of left bronchus or lung (principal); J44.9 Chronic obstructive pulmonary disease, unspecified; K76.89 Other specified diseases of liver; J96.11 Chronic respiratory failure with hypoxia; Z99.81 Dependence on supplemental oxygen; R94.31 Abnormal electrocardiogram [ECG] [EKG]; J91.8 Pleural effusion in other conditions classified elsewhere; I12.9 Hypertensive chronic kidney disease with stage 1 through stage 4 chronic kidney disease, or unspecified chronic kidney disease; Z53.8 Procedure and treatment not carried out for other reasons; E11.9 Type 2 diabetes mellitus without complications; I48.91 Unspecified atrial fibrillation; K21.9 Gastro-esophageal reflux disease without esophagitis; M10.9 Gout, unspecified; Z79.51 Long term (current) use of inhaled steroids; Z79.899 Other long term (current) drug therapy

== ENCOUNTER → 2020-02-19 | Outpatient (CLI) | payer MEDICARE, BC ==
[~2020-02-19] MED LIST changes: +CALC600T60 PO; +FERR325T3 PO; +FLON1SPR NARES; +LOSA100T50 PO; +OMEG10002 PO; +PANT-23 PO; +SITA50TAB PO; +VENTAER INH
--- NOTE | 2020-02-25 12:44 | REP ---
DATE: 02/19/2020 TIME: 12:[address]: HISTORY: Staging lung carcinoma. Comparison CT study of the chest is from January 30, 2020 showing a large mass in the left upper lobe and another suspicious lesion in the left lobe of the liver. There is a prior comparison chest CT study from February 16, 2016. TECHNIQUE: 1 hour and 22 minutes following the intravenous injection of an 8.54 millicurie dose of F18 FDG, [address] imaging is required in the usual fashion from the skull base to the proximal thighs. PET CT FINDINGS: Head and neck soft tissues are unremarkable. The known left upper lobe lung mass is markedly hypermetabolic with maximum standard uptake value 47.67. There are small bilateral pleural effusions and the heart is enlarged. There is some pleural calcification on the right. No other abnormal hypermetabolic uptake is seen within the thorax. No hilar or mediastinal hypermetabolic uptake is seen. The mass identified recently on CT scanning in the left lobe of the liver is also markedly hypermetabolic. Maximum standard uptake value is 22.17 in this left lobe liver lesion. No other abnormal hypermetabolic uptake is seen in the liver. Spleen uptake is normal and homogenous. No abnormal adrenal hypermetabolic uptake is observed. No abnormal uptake is seen in the abdomen or pelvis. IMPRESSION: Markedly hypermetabolic uptake is seen in large mass in left upper lobe and in another mass in the left lobe of the liver. Primary lung versus primary liver malignancy are possibilities. No other abnormal hypermetabolic lesion seen. MTDD
== END ==
LOC: M PLARAD 10:06
PROVIDERS: ATTEND Internal Medicine Pulmonary Disease
DX: R91.1 Solitary pulmonary nodule (principal); I51.7 Cardiomegaly; J90 Pleural effusion, not elsewhere classified; K76.7 Hepatorenal syndrome; K76.89 Other specified diseases of liver
CPT/HCPCS: 78815; A9552

== ENCOUNTER 2020-03-13 07:26 | Inpatient (IN) | payer MEDICARE, BC ==
[~2020-03-13] VITALS: Ht 177.8 cm; Wt 127.4 kg
[~2020-03-13 07:26] MED LIST changes: -CALC600T60 PO; -FERR325T3 PO; -FLON1SPR NARES; -LOSA100T50 PO; -OMEG10002 PO; -PANT-23 PO; -SITA50TAB PO; -VENTAER INH
[2020-03-13] MEDS ORDERED: FERR325T3 PO (07:38)
[2020-03-13] MEDS ORDERED: LOSA100T50 PO (07:38)
[2020-03-13] MEDS ORDERED: SITA50TAB PO (07:38)
[2020-03-13 08:41] LABS: HEMATOCRIT 32.2 % (42.0-52.0); HEMOGLOBIN 9.1 g/dl (13.5-17.5); MEAN CORPUSCULAR HEMOGLOBIN 25.6 pg (27.0-33.0); MEAN CORPUSCULAR HGB CONC 28.3 g/dl (32.0-36.5); MEAN CORPUSCULAR VOLUME 90.4 fl (80.0-96.0); PLATELET COUNT, AUTOMATED 177 10^3/uL (150-450); RED BLOOD COUNT 3.56 10^6/uL (4.30-6.10); WHITE BLOOD COUNT 12.3 10^3/uL (4.0-10.0)
[2020-03-13 09:09] LABS: ANISOCYTOSIS 1+; BASOPHILS 1 % (0-1); EOSINOPHILS 3 % (0-3); LYMPHOCYTES 3 % (16-44); METAMYELOCYTES 2 % (0-0); MONOCYTES 3 % (0-5); MYELOCYTES 1 % (0-0); NEUTROPHILS 84 % (28-66); PLATELET ESTIMATE NORMAL (NORMAL)
[2020-03-13 09:14] LABS: BLOOD UREA NITROGEN 50 MG/DL (7-18); C REACTIVE PROTEIN QUANTITATIV 6.19 MG/DL (0.00-0.30); CALCIUM LEVEL 8.2 MG/DL (8.8-10.2); CARBON DIOXIDE LEVEL 38 MEQ/L (21-32); CHLORIDE LEVEL 99 MEQ/L (98-107); CK-MB VALUE MASS 1.8 NG/ML (<3.6); CPK CREATINE PHOSPHOKINASE 74 U/L (39-308); CREATININE FOR GFR 2.49 MG/DL (0.70-1.30); GLOMERULAR FILTRATION RATE 26.6 (>35); GLUCOSE, FASTING 149 MG/DL (70-100); MB/CK RELATIVE INDEX 2.43 (< OR =4); NT-PRO BNP 1058 PG/ML (<450); POTASSIUM SERUM 4.4 MEQ/L (3.5-5.1); SODIUM LEVEL 140 MEQ/L (136-145); TROPONIN I < 0.02 NG/ML (< 0.10)
[2020-03-13 09:32] LABS: ERYTHROCYTE SEDIMENTATION RATE 81 mm/hr (0-20)
--- NOTE | 2020-03-13 09:42 | REP ---
INDICATION: r/o dvt. COMPARISON: Comparison study November 08, 2012.. TECHNIQUE: Bilateral lower extremity duplex venous sonography. FINDINGS: The deep veins are anechoic and fully compressible from the groin to the popliteal fossa in the left and right lower extremity. Color flow imaging is homogeneous. Spectral Doppler interrogation demonstrates intact respiratory variation in flow and normal manual augmentation of flow. There is no evidence of deep vein thrombosis. IMPRESSION: Negative bilateral lower extremity duplex venous ultrasound. No evidence of deep vein thrombosis. <Electronically signed by Jorge Alberto Martinez > 03/13/20 0931
--- NOTE | 2020-03-13 09:46 | REP ---
INDICATION: le edema. COMPARISON: Comparison chest x-ray February 04, 2020. TECHNIQUE: Two views.. FINDINGS: Moderate cardiomegaly is observed. There is blunting of the lateral pleural angles on both sides suggesting small bilateral effusions. The current radiograph is exposed and a lesser level of inspiration. There is mild platelike atelectasis in both bases. A 6.3 cm mass is again seen projecting in the left upper lung zone. This is unchanged. The aorta is calcific and tortuous. Pulmonary vasculature is not increased. Wheelchair lateral view demonstrates blunting of the posterior pleural angles. IMPRESSION: Large left upper lobe mass consistent with neoplasm again seen. Moderate cardiomegaly. Small bilateral pleural effusion consistent with CHF. Mild bibasilar platelike atelectasis.. <Electronically signed by Jorge Alberto Martinez > 03/13/20 0992
[2020-03-13] MEDS ORDERED: FUROSEMIDE 40MG/4ML VIAL (J1940) IV ONE (10:00)
[2020-03-13] MEDS ORDERED: VENTAER INH (11:32)
[2020-03-13] MEDS ORDERED: OMEG10002 PO (11:32)
[2020-03-13] MEDS ORDERED: PANT-23 PO (11:32)
[2020-03-13] MEDS ORDERED: CALC600T60 PO (11:32)
[2020-03-13] MEDS ORDERED: FLON1SPR NARES (11:32)
[2020-03-13] MEDS ORDERED: ACETAMINOPHEN TAB 650MG DOSE (2X325MG) PO PRN (12:00)
[2020-03-13] MEDS ORDERED: FLUTICASONE PROP 0.05% NASAL SPRAY 16 GM (FLONASE) NARES PRN (12:00)
[2020-03-13] MEDS ORDERED: BETAMETHASONE DIP 0.05% OINT 15 GM TOP PRN (12:00)
--- NOTE | 2020-03-13 12:41 | HPEPDOC ---
[facility] Medical History & Physical Date of Admission Mar 13, 2020 Date of Service: Mar 13, 2020 History and Physical Chief complaint: Who presented to the hospital with complaints of lower extremity swelling History of present illness: Patient is an 80-year-old male with a PMHx Chronic hypoxic respiratory failure (on 2L O2 at home), HTN, DLP, NIDDM2, CKD3, Hx of PE (10/2018), Gout, Morbid obesity who presented to the ER with complaints of lower extremity swelling. Patient reported that over the last 3 days his lower extremities have been progressively worsening with swelling. He's also experienced weakness. Patient denies any chest pain, palpitations or cough. Denies any recent fevers, chills. Reports no significant changes in his weight, but does report significant shortness of breath. Upon laying flat on his back. He denies waking up at night experiencing shortness of breath. Patient denies any abdominal pain, nausea, vomiting, constipation, diarrhea, or urinary discomfort. Patient was found to have a recent left upper lobe mass and had follow-up with h primary care provider, who has given him a referral to see Dr. Bonilla as an outpatient. Currently patient reports that he does not want to pursue any biopsy treatment or further investigation. 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 Study is of fair technical quality. 2. Normal left ventricle (LV) size with mild left ventricular hypertrophy (LVH) and preserved LV systolic function, grade 2 diastolic dysfunction. 3. No hemodynamically significant valvular disease. 4. Probably normal central venous pressure and likely mild or moderate pulmonary hypertension. Assessment and Plan: LE edema / Orthopnea - likely 2/2 decompensated CHF (Possible diastolic) - Patient presented to the emergency room with complaints of LE edema and shortness of breath when laying flat - Physical reveals gross pitting edema of his bilateral lower extremities - Hemodynamically stable and saturating well on 2 L nasal cannula - EKG reviewed; no evidence of ischemia similar to prior EKG - Elevated BNP - Troponin x1 negative; will continue to trend - CXR 03/13: Large left upper lobe mass consistent with neoplasm again seen. Moderate cardiomegaly. Small bilateral pleural effusion consistent with CHF. Mild bibasilar platelike atelectasis. - Duplex US 03/13: Negative bilateral lower extremity duplex venous ultrasound. No evidence of deep vein thrombosis. - c/w Telemetry monitoring - Strict ins/outs, daily weights, head of bed elevation - Will check ECHO - Patient has received Furosemide 40 IV in ER; will c/w Furosemide 80 IV q8h Chronic hypoxic respiratory failure - Patient reports that he uses 2-3 L of oxygen at baseline Obstructive lung disease - Patient reports that he uses an albuterol inhaler as an outpatient, however, has not been formally diagnosed with COPD - c/w supplemental oxygen - c/w Albuterol inhaler as needed Left Upper lobe Lung mass - PET Scan 02/18: Markedly hypermetabolic uptake is seen in large mass in left upper lobe and in another mass in the left lobe of the liver. Primary lung versus primary liver malignancy are possibilities. No other abnormal hypermetabolic lesion seen. - Patient has had follow-up with what he reports is Dr. Jarvis; - Patient has refused any CT scan today; aware of the risks of his decision - has verbalized understanding - Patient has refused seeking any biopsy for diagnostic purposes and does not want any intervention - Patient has verbalized understanding of the risks of his decision and the benefits of pursuing treatment/diagnosis Elevated Cr on CKD3 - Possibly 2/2 cardiorenal syndrome - Will need to continue with diuresis HTN - BP well controlled - c/w Metoprolol with holding parameters - Will hold Lisinopril (re: elevated Cr) DLP - c/w [place] 3 fatty acids NIDDM2 - c/w ISS Hx of PE (10/2018) - Currently off anticoagulation Gout - c/w Febuxostat Morbid obesity - Complicating medical care DVT prophylaxis - Will start Heparin Code status: - Patient has filled out MOLST form - DNR / DNI Vital Signs Vital Signs Date Time Temp Pulse Resp B/P (MAP) Pulse Ox O2 Delivery O2 Flow Rate FiO2 03/13/20 11:46 87 03/13/20 11:31 67 03/13/20 09:06 18 Room Air 03/13/20 09:01 117/57 (77) 03/13/20 07:26 97.1 Laboratory Data Labs 24H Laboratory Tests 2 03/13/20 08:23: Immature Granulocyte % (Auto) , Neutrophils (%) (Auto) , Nucleated Red Blood Cells % (auto) 0.0, Neutrophils 84H, Band Neutrophils 3, Lymphocytes (Manual) 3L, Monocytes (Manual) 3, Eosinophils (Manual) 3, Basophils (Manual) 1, Metamyelocytes 2H, Myelocytes 1H, Anisocytosis 1+, Platelet Estimate NORMAL, Erythrocyte Sedimentation Rate 81H, Anion Gap 3L, Glomerular Filtration Rate 26.6L, Calcium Level 8.2L, Total Creatine Kinase 74, Creatine Kinase MB 1.8, Creatine Kinase MB Relative Index 2.43, Troponin I < 0.02, C-Reactive Protein, Quantitative 6.19H, LI-Hxy-N-Type Natriuretic Peptide 1058H 03/13/20 11:54: Bedside Glucose (Misc Panel) 140H CBC/BMP Laboratory Tests 03/13/20 08:23 Microbiology Microbiology 03/13/20 Respiratory Virus Panel (PCR) ([facility] [place]) - Final, Complete Home Medications Scheduled Amiodarone HCl (Amiodarone HCl) 200 Mg Tab, 200 MG PO QPM Calcium Carbonate (Calcium) 600 Mg Tablet, 600 MG PO BID Exenatide Microspheres (Bydureon) 2 Mg Inj, 2 MG SC 1XWK TUESDAY MORNINGS Febuxostat (Uloric) 40 Mg Tab, 40 MG PO QPM DINNERTIME Ferrous Sulfate (Ferrous Sulfate) 325 Mg Tablet.dr, 325 MG PO BID Glimepiride (Glimepiride) 4 Mg Tab, 4 MG PO DAILY Loratadine (Loratadine) 10 Mg Tab, 10 MG PO DAILY Losartan Potassium (Losartan Potassium) 100 Mg Tablet, 100 MG PO QPM Metoprolol Tartrate (Metoprolol Tartrate) 50 Mg Tab, 50 MG PO BID [place]-3/Dha/Epa/Fish Oil (Fish Oil 1,000 mg Softgel) 1 Each Capsule, 1,000 MG PO BID Pantoprazole Sodium (Pantoprazole Sodium) 40 Mg Tablet.dr, 40 MG PO BID Sitagliptin (Januvia) 50 Mg Tablet, 50 MG PO QPM Torsemide (Torsemide) 20 Mg Tablet, 4 TAB PO BID Scheduled PRN Albuterol Sulfate (Ventolin Hfa) 18 Gm Hfa.aer.ad, 2 PUFFS INH QID PRN for SHORTNESS OF BREATH Betamethasone Dip (Betamethasone Dipropionate) 1 Dose/15 Gm Oint, 1 DOSE TOP BID PRN for DRY SKIN USED ON EARS Fluticasone Propionate (Flonase Allergy Relief) 9.9 Ml [place].susp, 2 SPRAY NARES DAILY PRN for ALLERGIES Allergies Coded Allergies: zolpidem (Verified Adverse Reaction, Mild, HALUCINATIONS / RESTLESSNESS, 03/13/20) JAYSHREE JOHNSON MD Mar 13, 2020 12:41
[2020-03-13] MEDS ORDERED: DEXTROSE 50% 50 ML SYRINGE IV PRN (12:45)
[2020-03-13] MEDS ORDERED: GLUCAGON INJ 1MG VIAL SC PRN (12:45)
[2020-03-13] MEDS ORDERED: GLUCOSE 4GM CHEW TABLET PO PRN (12:45)
[2020-03-13 14:00] VITALS: BP 128/63
[2020-03-13] MEDS: HumaLOG INSULIN (NovoLOG) PER UNIT SC SCH ×2 (14:30→18:18)
[2020-03-13] MEDS: HEPARIN SOD (PORCINE) 5000UNITS/ML 1ML VIAL/SYRINGE SC SCH ×2 (14:31→23:02)
[2020-03-13 15:59] LABS: CK-MB VALUE MASS 2.1 NG/ML (<3.6); CPK CREATINE PHOSPHOKINASE 92 U/L (39-308); MB/CK RELATIVE INDEX 2.28 (< OR =4); TROPONIN I < 0.02 NG/ML (< 0.10)
[2020-03-13 16:00] VITALS: BP 122/55
[2020-03-13] MEDS ORDERED: FLUBLOK(EGG FREE)(QUAD)INFLUENZA VACC 0.5ML SYRINGE 18YRS & OLDER IM PRN (16:00)
[2020-03-13] MEDS ORDERED: FEBUXOSTAT 40 MG TABLET (ULORIC) PO SCH (18:00)
[2020-03-13 18:14] VITALS: BP 126/58
[2020-03-13] MEDS: FUROSEMIDE 100MG/10ML VIAL (J1940) IV SCH (18:19)
[2020-03-13 20:00] VITALS: BP 148/60
[2020-03-13] MEDS: OMEGA-3 1000MG CAPSULE PO SCH (20:22)
[2020-03-13] MEDS: PANTOPRAZOLE 40MG TAB (PROTONIX) PO SCH (20:22)
[2020-03-13] MEDS: FERROUS SULFATE 325MG TAB PO SCH (20:22)
[2020-03-13] MEDS: METOPROLOL TART 50 MG TAB PO SCH (20:23)
[2020-03-13] MEDS ORDERED: HumaLOG INSULIN (NovoLOG) PER UNIT SC SCH (21:00)
[2020-03-13] MEDS ORDERED: AMIODARONE 200 MG TAB (PACERONE) PO SCH (21:00)
[2020-03-13 21:26] LABS: CK-MB VALUE MASS 2.4 NG/ML (<3.6); CPK CREATINE PHOSPHOKINASE 100 U/L (39-308); TROPONIN I < 0.02 NG/ML (< 0.10)
[2020-03-14] VITALS: BP 113/57
[2020-03-14 02:13] VITALS: BP 142/65
[2020-03-14] MEDS: FUROSEMIDE 100MG/10ML VIAL (J1940) IV SCH (02:15)
[2020-03-14 05:17] LABS: BASO % 0.4 % (0.0-1.0); EOS % 0.3 % (0.0-3.0); HEMATOCRIT 31.8 % (42.0-52.0); HEMOGLOBIN 9.3 g/dl (13.5-17.5); LYMPH # 0.6 10^3/uL (1.5-5.0); LYMPH % 5.2 % (24.0-44.0); MEAN CORPUSCULAR HEMOGLOBIN 26.1 pg (27.0-33.0); MEAN CORPUSCULAR HGB CONC 29.2 g/dl (32.0-36.5); MEAN CORPUSCULAR VOLUME 89.3 fl (80.0-96.0); MONO # 0.5 10^3/uL (0.0-0.8); MONO % 4.9 % (0.0-5.0); NEUTROPHILS # 9.1 10^3/uL (1.5-8.5); NEUTROPHILS % 84.3 % (36.0-66.0); PLATELET COUNT, AUTOMATED 189 10^3/uL (150-450); RED BLOOD COUNT 3.56 10^6/uL (4.30-6.10); WHITE BLOOD COUNT 10.8 10^3/uL (4.0-10.0)
[2020-03-14 05:46] LABS: CALCIUM LEVEL 8.7 MG/DL (8.8-10.2); CREATININE FOR GFR 2.3 MG/DL (0.70-1.30); GLOMERULAR FILTRATION RATE 29.2 (>35); MAGNESIUM LEVEL 1.6 MG/DL (1.8-2.4); POTASSIUM SERUM 4.5 MEQ/L (3.5-5.1)
[2020-03-14] MEDS: HEPARIN SOD (PORCINE) 5000UNITS/ML 1ML VIAL/SYRINGE SC SCH (06:32)
[2020-03-14] MEDS: HumaLOG INSULIN (NovoLOG) PER UNIT SC SCH ×2 (07:30→11:47)
[2020-03-14 08:00] VITALS: BP 124/58
[2020-03-14] MEDS ORDERED: MAG SULF 1GM/100ML (MAG RUN) 1 GM in IV 1 EA IV ONE (08:00)
[2020-03-14] MEDS ORDERED: TORSEMIDE 20 MG TAB PO ONE (08:15)
[2020-03-14] MEDS: OMEGA-3 1000MG CAPSULE PO SCH (08:55)
[2020-03-14] MEDS: PANTOPRAZOLE 40MG TAB (PROTONIX) PO SCH (08:55)
[2020-03-14] MEDS: FERROUS SULFATE 325MG TAB PO SCH (08:55)
[2020-03-14 08:57] VITALS: BP 124/58
[2020-03-14] MEDS: METOPROLOL TART 50 MG TAB PO SCH (08:57)
[2020-03-14] MEDS ORDERED: LORATADINE 10 MG TAB PO SCH (09:00)
[2020-03-14 12:00] VITALS: BP 140/62
[2020-03-14] MEDS ORDERED: TORS20TA2 PO (12:30)
--- NOTE | 2020-03-14 14:56 | ECHO ---
DATE OF PROCEDURE: 03/13/2020 Age: 80 Gender: Male Height: 178 cm Weight: 127 kg REFERRING PHYSICIAN: Dr. Penelope Leon INDICATION: Edema MEASUREMENTS: IVS 1.2 LV 4.5 LVPW 1.2 LA 3.5 IVC 1.5 Mitral E wave velocity 79, A wave 65 E prime septal 4.7 E prime lateral 6.9 FINDINGS: The patient study is of difficult technical quality with very limited visualization. The patient is in sinus rhythm with wide QRS complex. Left ventricular is normal size and probably overall normal systolic function based on limited views. Mild LVH is noted. Right ventricle was poorly seen. Both atria were poorly visualized. Aortic valve is heavily sclerotic and cannot comment much on its structure. Mobility seems to be reasonably preserved. Mitral, tricuspid and pulmonic valves were very poorly visualized. No pericardial effusion is noted. Inferior vena cava is normal size and appropriately collapses with inspiration indicative of normal central venous pressure. Aortic root is normal. Aortic arch and abdominal aorta were not visualized Doppler interrogation reveals no significant aortic, mitral and tricuspid valvular disease. Mitral inflow pattern and tissue Doppler imaging of mitral annulus revealed grade 2 diastolic dysfunction. CONCLUSIONS: 1. Study is of very limited technical quality, the patient is in sinus rhythm. 2. Normal LV size with mild left ventricular hypertrophy (LVH) and overall likely normal LV systolic function based on poor quality views. 3. Very prominent aortic sclerosis, but no significant stenosis or insufficiency. 4. Competent mitral and tricuspid valves. 5. Normal central venous pressure. 6. Unable to estimate pulmonary artery pressure MTDD
--- NOTE | 2020-03-14 15:11 | DS.PDOC ---
Discharge Summary General Date of Admission Mar 13, 2020 at 11:52 Date of Discharge 03/14/2020 Discharge Summary PROCEDURES PERFORMED DURING STAY: [None]. ADMITTING DIAGNOSES / DISCHARGE DIAGNOSES: LE edema / Orthopnea - likely 2/2 decompensated CHF (Possible diastolic) Chronic hypoxic respiratory failure Obstructive lung disease Left Upper lobe Lung mass Elevated Cr on CKD3 - possibly 2/2 cardiorenal syndrome HTN DLP NIDDM2 Hx of PE (10/2018) Gout Morbid obesity DVT prophylaxis COMPLICATIONS/CHIEF COMPLAINT: Leg swelling HISTORY OF PRESENT ILLNESS: Patient is an 80-year-old male with a PMHx Chronic hypoxic respiratory failure (on 2L O2 at home), HTN, DLP, NIDDM2, CKD3, Hx of PE (10/2018), Gout, Morbid obesity who presented to the ER with complaints of lower extremity swelling. Patient reported that over the last 3 days his lower extremities have been progressively worsening with swelling. He's also experienced weakness. Patient denies any chest pain, palpitations or cough. Denies any recent fevers, chills. Reports no significant changes in his weight, but does report signifi cant shortness of breath. Upon laying flat on his back. He denies waking up at night experiencing shortness of breath. Patient denies any abdominal pain, nausea, vomiting, constipation, diarrhea or u rinary discomfort. Patient was found to have a recent left upper lobe mass and had follow-up with h is primary care provider, who has given him a referral to see Dr. Bonilla as an outpatient. Currently patient reports that he does not want to pursue any biopsy treatment or further investigation. 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 Moderate cardiomegaly. Small bilateral pleural effusion consistent with CHF. Mild bibasilar platelike atelectasis. - Duplex US 03/13: Negative bilateral lower extremity duplex venous ultrasound. No evidence of deep vein thrombosis. - c/w Telemetry monitoring - Strict ins/outs, daily weights, head of bed elevation - Adjusted diuretics to Torsemide - Discussed goals of care; patient does not want any further diagnostic testing completed and wants to focus on comfort and maintaining his time at home with is - MOLST form updated to reflect comfort measures - Discussed with PCP; will have outpatient follow up within 5 days - will have outpatient follow up with hospice - Will be discharge home with services - Discussed with his and provided her with an update; agree with current care plan Chronic hypoxic respiratory failure - Patient reports that he uses 2-3 L of oxygen at baseline Obstructive lung disease - Patient reports that he uses an albuterol inhaler as an outpatient, however, has not been formally diagnosed with COPD - c/w supplemental oxygen - c/w Albuterol inhaler as needed Left Upper lobe Lung mass - PET Scan 02/18: Markedly hypermetabolic uptake is seen in large mass in left upper lobe and in another mass in the left lobe of the liver. Primary lung versus primary liver malignancy are possibilities. No other abnormal hypermetabolic lesion seen. - Patient has had follow-up with what he reports is Dr. Jarvis and had refused and further workup - Patient has refused seeking any biopsy for diagnostic purposes and does not want any intervention - Patient has verbalized understanding of the risks of his decision and the benefits of pursuing treatment/diagnosis - I've had an extensive discussion with the patient today about goals of care; plan for discharge home with services and outpatient pursuit of hospice - MOLST form has been updated to reflect comfort measures only Elevated Cr on CKD3 - possibly 2/2 cardiorenal syndrome - Improving - Will need to continue with diuresis HTN - BP well controlled - c/w Metoprolol with holding parameters - Will resume Lisinopril on discharge (re: elevated Cr) DLP - c/w [place] 3 fatty acids NIDDM2 - c/w ISS Hx of PE (10/2018) - Currently off anticoagulation Gout - c/w Febuxostat Morbid obesity - BMI 40.3 - Complicating medical care DVT prophylaxis - c/w Heparin DISCHARGE MEDICATIONS: Please see below. ALLERGIES: Please see below. PHYSICAL EXAMINATION ON DISCHARGE: Vitals (See below) General: Lying in bed, no acute distress, comfortable, AAOx3 HEENT: NC, AT CVS: +S1S2 Lungs: Fair air entry b/l, no appreciable wheezing, rhonchi or rales Abdomen: Soft, nondistended and nontender Extremities: - Edema, - Calf tenderness LABORATORY DATA: Please see below. ACTIVITY: [As tolerated]. DISCHARGE PLAN: Follow-up with primary care provider, Judith Soler within 7 days Will have outpatient follow-up with hospice Remain compliant with treatment plan and medications Return to ER if your pain, or symptoms are otherwise uncontrolled CODE STATUS: - DNR / DNI - Comfort measures - PCP to have hospice follow up at home DISPOSITION: Home with services Outpatient follow up with Hospice DISCHARGE CONDITION: [Stable]. TIME SPENT ON DISCHARGE: 35 minutes Vital Signs/I&Os Vital Signs Date Time Temp Pulse Resp B/P (MAP) Pulse Ox O2 Delivery O2 Flow Rate FiO2 03/14/20 12:00 98.0 84 16 140/62 (88) 96 Nasal Cannula 2.0 I&O- Last 24 Hours up to 6 AM 03/14/20 06:00 Intake Total 870 ml Output Total 1475 ml Balance -605 ml Laboratory Data Labs 24H Laboratory Tests 2 03/13/20 17:49: Bedside Glucose (Misc Panel) 142H 03/13/20 20:16: Bedside Glucose (Misc Panel) 192H 03/13/20 20:39: Total Creatine Kinase 100, Creatine Kinase MB 2.4, Creatine Kinase MB Relative Index 2.40, Troponin I < 0.02 03/14/20 04:42: Immature Granulocyte % (Auto) 4.9H, Neutrophils (%) (Auto) 84.3H, Lymphocytes (%) (Auto) 5.2L, Monocytes (%) (Auto) 4.9, Eosinophils (%) (Auto) 0.3, Basophils (%) (Auto) 0.4, Neutrophils # (Auto) 9.1H, Lymphocytes # (Auto) 0.6L, Monocytes # (Auto) 0.5, Eosinophils # (Auto) 0.0, Basophils # (Auto) 0.0, Nucleated Red Blood Cells % (auto) 0.0, Anion Gap 6L, Glomerular Filtration Rate 29.2L, Calcium Level 8.7L, Magnesium Level 1.6L 03/14/20 07:32: Bedside Glucose (Misc Panel) 91 03/14/20 11:43: Bedside Glucose (Misc Panel) 174H CBC/BMP Laboratory Tests 03/14/20 04:42 FSBS Laboratory Tests Test 03/13/20 17:49 03/13/20 20:16 03/14/20 07:32 03/14/20 11:43 Range/Units Bedside Glucose (Misc Panel) 142 192 91 174 83-110 MG/DL Microbiology Microbiology 03/13/20 Respiratory Virus Panel (PCR) (MARIA ESTHER) - Final, Complete Discharge Medications Scheduled Amiodarone HCl (Amiodarone HCl) 200 Mg Tab, 200 MG PO QPM, (Reported) Calcium Carbonate (Calcium) 600 Mg Tablet, 600 MG PO BID, (Reported) Exenatide Microspheres (Bydureon) 2 Mg Inj, 2 MG SC 1XWK, (Reported) TuesdayS Febuxostat (Uloric) 40 Mg Tab, 40 MG PO QPM, (Reported) DINNERTIME Ferrous Sulfate (Ferrous Sulfate) 325 Mg Tablet.dr, 325 MG PO BID, (Reported) Glimepiride (Glimepiride) 4 Mg Tab, 4 MG PO DAILY, (Reported) Loratadine (Loratadine) 10 Mg Tab, 10 MG PO DAILY, (Reported) Losartan Potassium (Losartan Potassium) 100 Mg Tablet, 100 MG PO QPM, (Reported) Metoprolol Tartrate (Metoprolol Tartrate) 50 Mg Tab, 50 MG PO BID, (Reported) [place]-3/Dha/Epa/Fish Oil (Fish Oil 1,000 mg Softgel) 1 Each Capsule, 1,000 MG PO BID, (Reported) Pantoprazole Sodium (Pantoprazole Sodium) 40 Mg Tablet.dr, 40 MG PO BID, (Reported) Sitagliptin (Januvia) 50 Mg Tablet, 50 MG PO QPM, (Reported) Torsemide (Torsemide) 20 Mg Tablet, 4 TAB PO BID Scheduled PRN Albuterol Sulfate (Ventolin Hfa) 18 Gm Hfa.aer.ad, 2 PUFFS INH QID PRN for SHORTNESS OF BREATH, (Reported) Betamethasone Dip (Betamethasone Dipropionate) 1 Dose/15 Gm Oint, 1 DOSE TOP BID PRN for DRY SKIN, (Reported) USED ON EARS Fluticasone Propionate (Flonase Allergy Relief) 9.9 Ml [place].susp, 2 SPRAY NARES DAILY PRN for ALLERGIES, (Reported) Allergies Coded Allergies: zolpidem (Verified Adverse Reaction, Mild, HALUCINATIONS / RESTLESSNESS, 03/13/20) JAYSHREE JOHNSON MD Mar 14, 2020 15:11
--- NOTE | 2020-03-16 05:35 | ECGEPIP ---
[facility] - ED Test Date: 2020-03-13 Pat Name: FARIDA NEWBERRY Department: Room: - Gender: Male Manager Marketing: ALLI : 1940 Requested By: DEWEY Martinez PA-C Order Number: [id number] Reading MD: Uziel Wade Measurements Intervals [place] Rate: 68 P: CO: 0 QRS: 267 QRSD: 174 T: 20 QT: 418 QTc: 446 Interpretive Statements SINUS RHYTHM WITH FIRST DEGREE AV BLOCK WITH OCCASIONAL PREMATURE VENTRICULAR COMPLEXES RIGHT AXIS DEVIATION RIGHT BUNDLE BRANCH BLOCK POOR R WAVE PROGRESSION SIMILAR TO 02/04/20 Electronically Signed on 03-16-2020 5:35:02 EST by Uziel Wade
== END 2020-03-14 16:00 | disposition home or self-care (01) | DRG 291 ==
LOC: M ED 07:26 → M ED INP 11:52 → ENRESERV 12:25 → M ICU 13:22
PROVIDERS: ADMIT Internal Medicine; ATTEND Internal Medicine
DX: I13.0 Hypertensive heart and chronic kidney disease with heart failure and stage 1 through stage 4 chronic kidney disease, or unspecified chronic kidney disease (principal); I50.33 Acute on chronic diastolic (congestive) heart failure; J96.11 Chronic respiratory failure with hypoxia; Z68.41 Body mass index [BMI] 40.0-44.9, adult; C34.12 Malignant neoplasm of upper lobe, left bronchus or lung; N18.30 Chronic kidney disease, stage 3 unspecified; E66.01 Morbid (severe) obesity due to excess calories; R16.0 Hepatomegaly, not elsewhere classified; E11.9 Type 2 diabetes mellitus without complications; M10.9 Gout, unspecified; Z86.711 Personal history of pulmonary embolism; Z51.5 Encounter for palliative care; Z79.899 Other long term (current) drug therapy; Z88.8 Allergy status to other drugs, medicaments and biological substances; Z66 Do not resuscitate

== ENCOUNTER 2020-03-27 15:19 | Inpatient (IN) | payer MEDICARE, BC ==
[~2020-03-27] VITALS: Ht 177.8 cm; Wt 127.4 kg
[~2020-03-27 15:19] MED LIST changes: +CALC600T60 PO; +FERR325T3 PO; +FLON1SPR NARES; +LOSA100T50 PO; +OMEG10002 PO; +PANT-23 PO; +SITA50TAB PO; +TORS20TA2 PO; +VENTAER INH
--- NOTE | 2020-03-27 16:28 | REP ---
INDICATION: SOB, known lung mass. COMPARISON: Multiple, the latest 03/13/2020. TECHNIQUE: The technique utilized in obtaining the radiograph has magnified the cardiac silhouette and attenuated the interstitial markings. FINDINGS: The patient is tilted rotated to the right. There are unchanged bibasilar opacities and there is unchanged bilateral CP angle blunting. There is cardiomegaly accentuated by technique. There is no significant change in the osseous structures. IMPRESSION: Bilateral lung base opacities consistent with atelectasis and pleural effusions. Concomitant pneumonia cannot be ruled out. Follow-up is recommended. <Electronically signed by Freddie Carrero > 03/27/20 [id number]
[2020-03-27 16:38] LABS: HEMOGLOBIN 9.7 g/dl (13.5-17.5); MEAN CORPUSCULAR HEMOGLOBIN 25.4 pg (27.0-33.0); MEAN CORPUSCULAR HGB CONC 30.3 g/dl (32.0-36.5); MEAN CORPUSCULAR VOLUME 83.8 fl (80.0-96.0); PLATELET COUNT, AUTOMATED 219 10^3/uL (150-450); RED BLOOD COUNT 3.82 10^6/uL (4.30-6.10); WHITE BLOOD COUNT 13.4 10^3/uL (4.0-10.0)
[2020-03-27 16:49] LABS: CALCIUM LEVEL 8.4 MG/DL (8.8-10.2); CREATININE FOR GFR 4.87 MG/DL (0.70-1.30); GLOMERULAR FILTRATION RATE 12.3 (>35); POTASSIUM SERUM 5.3 MEQ/L (3.5-5.1)
[2020-03-27 17:09] LABS: EOSINOPHILS 2 % (0-3); LYMPHOCYTES 1 % (16-44); METAMYELOCYTES 2 % (0-0); NEUTROPHILS 91 % (28-66)
[2020-03-27 17:10] LABS: ANISOCYTOSIS 1+; OVALOCYTES 1+; PLATELET ESTIMATE NORMAL (NORMAL); POIKILOCYTOSIS 1+; POLYCHROMASIA 1+
[2020-03-27] MEDS ORDERED: ACETAMINOPHEN TAB 650MG DOSE (2X325MG) PO PRN (17:15)
[2020-03-27 17:16] VITALS: BP 131/58
[2020-03-27] MEDS ORDERED: TORS20TA2 PO (17:24)
[2020-03-27] MEDS ORDERED: CEFD1CAP8 PO (17:25)
[2020-03-27] MEDS ORDERED: BETAMETHASONE DIP 0.05% OINT 15 GM TOP PRN (17:30)
[2020-03-27] MEDS ORDERED: FLUTICASONE PROP 0.05% NASAL SPRAY 16 GM (FLONASE) NARES PRN (17:30)
[2020-03-27] MEDS ORDERED: CALCIUM CARBONATE 500 MG CHEW U/D PO PRN (17:30)
--- NOTE | 2020-03-27 17:30 | HPEPDOC ---
[facility] Medical History & Physical Date of Admission Mar 27, 2020 Date of Service: Mar 27, 2020 History and Physical Chief complaint: Who presented to the ER after he had fallen at home History of present illness: Patient is an 80-year-old male with a PMHx Chronic hypoxic respiratory failure (on 2L O2 at home), HTN, DLP, NIDDM2, CKD3, Hx of PE (10/2018), Gout, Morbid obesity who presented to the ER after he had fallen at home. Patient had a recent admission to [facility] on 03/13/2020 to 03/14/2020 for lower extremity swelling and shortness of breath. Patient was found to have a recent left upper lobe mass and had follow-up with his primary care provider, who has given him a referral to see Dr. Bonilla as an outpatient. Currently patient reports that he does not want to pursue any biopsy treatment or further investigation. After extensive discussion with patient, family/healthcare proxy/ and primary care provider patient was made comfort measures. Patient was supposed to have outpatient follow-up with hospice for continuation of his management. Patient presented to the ER after he had fallen while at home. He reports that hospice has not yet evaluated him. Currently patient denies any pain, nausea, vomiting, chest pain, change in his baseline shortness of breath. Does report a productive cough with yellow/white sputum. Denies any blood-tinged denies any abdominal pain, constipation, diarrhea, or urinary discomfort. . He denies any recent fevers or chills. Patient reports that he has been able to live slightly flat and the last time he was here. 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 Review of Systems: 10 point review of systems complete, all negative otherwise stated in HPI Physical exam: - Vitals: BP [82/46], HR [52], RR [20], Sat [96%NC3L], Temp [92.7Rectal] - General: Lying in bed, Speaking in full sentences, AAOx3 - HEENT: NC, AT, PERRLA - CVS: RRR, +S1S2 - Lungs: Fair air entry bilaterally, No wheezing / rales / rhonchi - Abdomen: Soft, Non-distended, Non-tender - Extremities: 3+ pitting edema, No calf tenderness - Neuro: No focal motor or sensory deficit - Skin: No visible rashes Assessment: Comfort measures only LE edema / Orthopnea - likely 2/2 decompensated CHF (Possible diastolic) Acute renal failure Uremia Hyponatremia Hyperkalemia Leukocytosis Normocytic anemia Decubitus ulcers Chronic hypoxic respiratory failure Obstructive lung disease Left Upper lobe Lung mass - likely 2/2 malignancy Elevated Cr on CKD3 - possibly 2/2 cardio-renal syndrome HTN DLP NIDDM2 Hx of PE (10/2018) Gout Morbid obesity DVT prophylaxis Plan: Comfort measures - Extensive discussion with the patient and family/healthcare proxy/; patient wants to remain comfort measures - Patient does not want to pursue any aggressive treatment and only focus on his comfort - Will continue with home medications - Will have hospice consult and discussed with PFS to establish equipment required at home Code status: - DNR / DNI Contacts: - Discussed with ; Lali Donnelly [phone] / son cell # [phone] Vital Signs Vital Signs Date Time Temp Pulse Resp B/P (MAP) Pulse Ox O2 Delivery O2 Flow Rate FiO2 03/27/20 17:19 51 99 03/27/20 17:16 16 131/58 (82) 03/27/20 15:56 92.7 Nasal Cannula 3.5 Laboratory Data Labs 24H Laboratory Tests 2 03/27/20 16:14: Immature Granulocyte % (Auto) , Neutrophils (%) (Auto) , Nucleated Red Blood Cells % (auto) 0.0, Neutrophils 91H, Band Neutrophils 4, Lymphocytes (Manual) 1L, Eosinophils (Manual) 2, Metamyelocytes 2H, Polychromasia 1+, Poikilocytosis 1+, Anisocytosis 1+, Ovalocytes 1+, Platelet Estimate NORMAL, Anion Gap 9, Glomerular Filtration Rate 12.3L, Calcium Level 8.4L 03/27/20 16:58: CBC/BMP Laboratory Tests 03/27/20 16:14 Home Medications Scheduled Amiodarone HCl (Amiodarone HCl) 200 Mg Tab, 200 MG PO QPM Calcium Carbonate (Calcium) 600 Mg Tablet, 600 MG PO BID Cefdinir (Cefdinir) 300 Mg Capsule, 300 MG PO BID FOR 10 DAYS, STARTED 03/20 Exenatide Microspheres (Bydureon) 2 Mg Inj, 2 MG SC 1XWK TUESDAY MORNINGS Febuxostat (Uloric) 40 Mg Tab, 40 MG PO QPM DINNERTIME Ferrous Sulfate (Ferrous Sulfate) 325 Mg Tablet.dr, 325 MG PO BID Glimepiride (Glimepiride) 4 Mg Tab, 4 MG PO DAILY Loratadine (Loratadine) 10 Mg Tab, 10 MG PO DAILY [place]-3/Dha/Epa/Fish Oil (Fish Oil 1,000 mg Softgel) 1 Each Capsule, 1,000 MG PO BID Pantoprazole Sodium (Pantoprazole Sodium) 40 Mg Tablet.dr, 40 MG PO BID Sitagliptin (Januvia) 50 Mg Tablet, 50 MG PO QPM Torsemide (Torsemide) 20 Mg Tablet, 80 MG PO BID TAKES AM/AFTERNOON Scheduled PRN Albuterol Sulfate (Ventolin Hfa) 18 Gm Hfa.aer.ad, 2 PUFFS INH QID PRN for SHORTNESS OF BREATH Betamethasone Dip (Betamethasone Dipropionate) 1 Dose/15 Gm Oint, 1 DOSE TOP BID PRN for DRY SKIN USED ON EARS Fluticasone Propionate (Flonase Allergy Relief) 9.9 Ml [place].susp, 2 SPRAY NARES DAILY PRN for ALLERGIES Allergies Coded Allergies: zolpidem (Verified Adverse Reaction, Mild, HALUCINATIONS / RESTLESSNESS, 03/13/20) JAYSHREE JOHNSON MD Mar 27, 2020 17:30
[2020-03-27] MEDS: FEBUXOSTAT 40 MG TABLET (ULORIC) PO SCH (21:28)
[2020-03-27] MEDS: SITagliptin 50 MG TAB (JANUVIA) PO SCH (21:28)
[2020-03-27] MEDS: AMIODARONE 200 MG TAB (PACERONE) PO SCH (21:28)
[2020-03-28] MEDS ORDERED: GLIMEPIRIDE 2 MG TAB PO SCH (08:00)
[2020-03-28] MEDS: TORSEMIDE 20 MG TAB PO SCH ×2 (08:18→17:29)
--- NOTE | 2020-03-28 14:34 | IPNPDOC ---
Text Note Date of Service The patient was seen on 03/28/20. NOTE Subjective: Patient is an 80-year-old male with a PMHx Chronic hypoxic respiratory failure (on 2L O2 at home), HTN, DLP, NIDDM2, CKD3, Hx of PE (10/2018), Gout, Morbid obesity who presented to the ER after he had fallen at home. Patient had a recent admission to [facility] on 03/13/2020 to 03/14/2020 for lower extremity swelling and shortness of breath. Patient was found to have a recent left upper lobe mass and had follow-up with his primary care provider, who has given him a referral to see Dr. Bonilla as an outpatient. Currently patient reports that he does not want to pursue any biopsy treatment or further investigation. After extensive discussion with patient, family/healthcare proxy/ and primary care provider patient was made comfort measures. Patient was supposed to have outpatient follow-up with hospice for continuation of his management. Patient presented to the ER after he had fallen while at home on 03/27. After extensive discussion with . They're unable to provide 24/7 care for him at home and are seeking hospice house for disposition. Patient was seen and examined at the bedside. Currently patient appears to be comfortable and in no acute distress, is awake, alert and oriented to person, place and time. Objective: Vitals (See below) General: Lying in bed, no acute distress, comfortable, AAOx3 Full exam not completed Assessment: Comfort measures only LE edema / Orthopnea - likely 2/2 decompensated CHF (Possible diastolic) Acute renal failure Uremia Hyponatremia Hyperkalemia Leukocytosis Normocytic anemia Decubitus ulcers Chronic hypoxic respiratory failure Obstructive lung disease Left Upper lobe Lung mass - likely 2/2 malignancy Elevated Cr on CKD3 - possibly 2/2 cardio-renal syndrome HTN DLP NIDDM2 Hx of PE (10/2018) Gout Morbid obesity DVT prophylaxis Plan: Comfort measures - Discussion with the patient and today; patient wants to remain comfort measures - Patient does not want to pursue any aggressive treatment and only focus on his comfort - Family is unable to provide 24/7 care at home and they will be seeking hospice house - Will begin to adjust medications and transition to pain control / anxiety relief medications - Hospice consult/ transition to hospice house Code status: - DNR / DNI Contacts: - Discussed with ; Lali Donnelly [phone] Disposition: - Transition to [facility] - Awaiting hospice house VSShelli, I+O VSShelli, I+O Laboratory Tests 03/27/20 16:14 Vital Signs Date Time Temp Pulse Resp B/P (MAP) Pulse Ox O2 Delivery O2 Flow Rate FiO2 03/27/20 17:19 51 99 03/27/20 17:16 16 131/58 (82) 03/27/20 15:56 92.7 Nasal Cannula 3.5 I&O- Last 24 Hours up to 6 AM 03/28/20 06:00 Intake Total 210 ml Output Total 0 ml Balance 210 ml JAYSHREE JOHNSON MD Mar 28, 2020 14:34
[2020-03-28] MEDS ORDERED: LORazepam 1 MG TAB PO PRN (15:30)
[2020-03-28] MEDS: FEBUXOSTAT 40 MG TABLET (ULORIC) PO SCH (17:29)
[2020-03-28] MEDS: SITagliptin 50 MG TAB (JANUVIA) PO SCH (17:29)
[2020-03-28] MEDS: AMIODARONE 200 MG TAB (PACERONE) PO SCH (17:29)
--- NOTE | 2020-03-29 16:57 | DS.PDOC ---
Discharge Summary General Date of Admission Mar 28, 2020 at 14:25 Date of Discharge Discharge Summary PROCEDURES PERFORMED DURING STAY: [None]. ADMITTING DIAGNOSES / DISCHARGE DIAGNOSES: Comfort measures only LE edema / Orthopnea - likely 2/2 decompensated CHF (Possible diastolic) Acute renal failure Uremia Hyponatremia Hyperkalemia Leukocytosis Normocytic anemia Decubitus ulcers Chronic hypoxic respiratory failure Obstructive lung disease Left Upper lobe Lung mass - likely 2/2 malignancy Elevated Cr on CKD3 - possibly 2/2 cardio-renal syndrome HTN DLP NIDDM2 Hx of PE (10/2018) Gout Morbid obesity DVT prophylaxis COMPLICATIONS/CHIEF COMPLAINT: Fall HISTORY OF PRESENT ILLNESS / HOSPITAL COURSE: Patient is an 80-year-old male with a PMHx Chronic hypoxic respiratory failure (on 2L O2 at home), HTN, DLP, NIDDM2, CKD3, Hx of PE (10/2018), Gout, Morbid obesity who presented to the ER after he had fallen at home. Patient had a recent admission to [facility] on 03/13/2020 to 03/14/2020 for lower extremity swelling and shortness of breath. Patient was found to have a recent left upper lobe mass and had follow-up with his primary care provider, who has given him a referral to see Dr. Bonilla as an outpatient. Currently patient reports that he does not want to pursue any biopsy treatment or further investigation. After extensive discussion with patient, family/healthcare proxy/ and primary care provider patient was made comfort measures. Patient was supposed to have outpatient follow-up with hospice for continuation of his management. Patient presented to the ER after he had fallen while at home on 03/27. After extensive discussion with . They're unable to provide 24/7 care for him at home and are seeking hospice house for disposition. Confirmed comfort measures with patient and . Plans to transition patient to hospice house, however patient ultimately on 03/28/2020 at 2030. Patient family was notified and had arrived at the bedside after he was pronounced. DISCHARGE MEDICATIONS: Please see below. ALLERGIES: Please see below. DISPOSITION: Vital Signs/I&Os Vital Signs Date Time Temp Pulse Resp B/P (MAP) Pulse Ox O2 Delivery O2 Flow Rate FiO2 03/28/20 20:00 4.0 03/27/20 17:19 51 99 03/27/20 17:16 16 131/58 (82) 03/27/20 15:56 92.7 Nasal Cannula I&O- Last 24 Hours up to 6 AM 03/29/20 06:00 Intake Total 120 ml Output Total 0 ml Balance 120 ml Discharge Medications Scheduled Amiodarone HCl (Amiodarone HCl) 200 Mg Tab, 200 MG PO QPM, (Reported) Calcium Carbonate (Calcium) 600 Mg Tablet, 600 MG PO BID, (Reported) Cefdinir (Cefdinir) 300 Mg Capsule, 300 MG PO BID, (Reported) FOR 10 DAYS, STARTED 03/20 Exenatide Microspheres (Bydureon) 2 Mg Inj, 2 MG SC 1XWK, (Reported) TUESDAY MORNINGS Febuxostat (Uloric) 40 Mg Tab, 40 MG PO QPM, (Reported) DINNERTIME Ferrous Sulfate (Ferrous Sulfate) 325 Mg Tablet.dr, 325 MG PO BID, (Reported) Glimepiride (Glimepiride) 4 Mg Tab, 4 MG PO DAILY, (Reported) Loratadine (Loratadine) 10 Mg Tab, 10 MG PO DAILY, (Reported) [place]-3/Dha/Epa/Fish Oil (Fish Oil 1,000 mg Softgel) 1 Each Capsule, 1,000 MG PO BID, (Reported) Pantoprazole Sodium (Pantoprazole Sodium) 40 Mg Tablet.dr, 40 MG PO BID, (Reported) Sitagliptin (Januvia) 50 Mg Tablet, 50 MG PO QPM, (Reported) Torsemide (Torsemide) 20 Mg Tablet, 80 MG PO BID, (Reported) TAKES AM/AFTERNOON Scheduled PRN Albuterol Sulfate (Ventolin Hfa) 18 Gm Hfa.aer.ad, 2 PUFFS INH QID PRN for SHORTNESS OF BREATH, (Reported) Betamethasone Dip (Betamethasone Dipropionate) 1 Dose/15 Gm Oint, 1 DOSE TOP BID PRN for DRY SKIN, (Reported) USED ON EARS Fluticasone Propionate (Flonase Allergy Relief) 9.9 Ml [place].susp, 2 SPRAY NARES DAILY PRN for ALLERGIES, (Reported) Allergies Coded Allergies: zolpidem (Verified Adverse Reaction, Mild, HALUCINATIONS / RESTLESSNESS, 03/13/20) JAYSHREE JOHNSON MD Mar 29, 2020 16:57
== END 2020-03-28 20:30 | disposition expired | DRG 951 ==
LOC: M ED 15:19 → EDBD 15:19 → M ED INP 15:20 → ENRESERV 19:23 → M MSPAV 20:02 → INTOOBSV 03-28 14:25 → OBSVTOIN 03-28 14:25
PROVIDERS: ADMIT Internal Medicine; ATTEND Internal Medicine
DX: Z51.5 Encounter for palliative care (principal); I50.31 Acute diastolic (congestive) heart failure; J96.11 Chronic respiratory failure with hypoxia; N17.9 Acute kidney failure, unspecified; E87.1 Hypo-osmolality and hyponatremia; C34.12 Malignant neoplasm of upper lobe, left bronchus or lung; I13.0 Hypertensive heart and chronic kidney disease with heart failure and stage 1 through stage 4 chronic kidney disease, or unspecified chronic kidney disease; E87.5 Hyperkalemia; D72.829 Elevated white blood cell count, unspecified; E11.9 Type 2 diabetes mellitus without complications; E66.01 Morbid (severe) obesity due to excess calories; M10.9 Gout, unspecified; J44.9 Chronic obstructive pulmonary disease, unspecified; N18.30 Chronic kidney disease, stage 3 unspecified; Z86.711 Personal history of pulmonary embolism; Z79.899 Other long term (current) drug therapy; Z88.8 Allergy status to other drugs, medicaments and biological substances; D64.9 Anemia, unspecified